=== PATIENT | female | born 1970 | race Hispanic/Latino ===

== ENCOUNTER 2017-02-27 13:55 | Observation (INO) | payer MEDICAID ==
[2017-02-27 14:15] VITALS: RESP 18; TEMP 98.1; O2SAT 100
[2017-02-27 14:25] VITALS: BMI 25.0
[2017-02-27 15:58] VITALS: PULSE 77
[2017-02-27 16:33] LABS: ADD MANUAL DIFF? NO
[2017-02-27 16:38] LABS: BASO # 0.03 K/mm3 (0.0-2.0); BASO % 0.4 % (0.0-3.0); EOS # 0.1 (0.0-0.7); EOS % 1.7 % (1.5-5.0); GRAN # 4.75 (1.4-6.5); HEMATOCRIT 40.5 % (36.0-48.0); LYMPH # 2.8 (1.2-3.4); LYMPH % 34.5 % (22.0-35.0); MEAN CORPUSCULAR HGB CONC 34.1 g/dl (31.0-37.0); MEAN PLATELET VOLUME 9.5 fl (7.0-11.0); MONO # 0.4 (0.1-0.6); MONO % 5.4 % (1.0-6.0); PLATELET COUNT 266 10^3/uL (120.0-450.0); RED CELL DISTRIBUTION WIDTH 13.7 % (11.5-14.5); WHITE BLOOD COUNT 8.2 10^3/ul (4.5-11.0)
[2017-02-27 16:50] LABS: ALB/GLOB RATIO 1.1 (1.1-1.8); ALKALINE PHOSPHATASE 97 U/L (38-133); ALT/SGPT 40 U/L (7-56); AST/SGOT 36 U/L (15-39); BILIRUBIN,TOTAL 0.8 mg/dL (0.2-1.3); BLOOD UREA NITROGEN 10 mg/dL (7-21); CALCIUM 9.8 mg/dL (8.4-10.5); CARBON DIOXIDE 28 mmol/L (21-33); CHLORIDE 103 mmol/L (98-107); GFR AFRICAN-AMERICAN > 60; GLUCOSE,RANDOM 88 mg/dL (70-110); POTASSIUM 4.1 mmol/L (3.6-5.0); SODIUM 140 mmol/L (132-148); TOTAL PROTEIN 8.5 g/dL (5.8-8.3)
[2017-02-27] MEDS ORDERED: Iohexol 240 (50 ml) ONE (16:59)
--- NOTE | 2017-02-27 17:12 | ED PDOC ---
Arrival/HPI - General Historian: Patient <Nemesio Willamso Galilea - Last Filed: 02/27/17 18:15> <Jacinto Kern - Last Filed: 02/27/17 20:48> - General Chief Complaint: Psychiatric Evaluation Time Seen by Provider: 02/27/17 14:16 - History of Present Illness Narrative History of Present Illness (Text): 02/27/17 16:10 A 46 year old female, whose past medical history includes diverticulitis, ulcerative colitis, hernia repair, and psychiatric history, presents to the the emergency department for medication refill. Patient states she need a refill for Remeron, Klonopin, and Percocet. Patient report she was told to come to the emergency department by a social work therapist. She says she recently broke up with her boyfriend and had to suddenly move to this area. She does not have any doctor in this area yet to give her a refill on the medication. Patient does complaining of diffuse abdominal pain, which is worse because she ran out of her Percocet. Patient notes some nausea but denies any vomiting, fever, change in bowel movement or any other complaints at this time. PMD: Dr. Iza Urbano ([place], [place]) (ImerPanda L) Past Medical History - Provider Review Nursing Documentation Reviewed: Yes - Infectious Disease Hx of Infectious Diseases: None - Cardiac Hx Cardiac Disorders: Yes Hx Hypertension: Yes - Pulmonary Hx Tuberculosis: No - Neurological HX Cerebrovascular Accident: No Hx Seizures: No - HEENT Hx HEENT Disorder: No - Renal Hx Renal Disorder: No - Endocrine/Metabolic Hx Endocrine Disorders: No - Hematological/Oncological Hx Cancer: No - Integumentary Hx Dermatological Disorder: No - Musculoskeletal/Rheumatological Hx Musculoskeletal Disorders: Yes Hx Back Pain: Yes - Gastrointestinal Hx Gastrointestinal Disorders: Yes Hx Colitis: Yes Hx Diverticulitis: Yes Other/Comment: surgies in the past - Genitourinary/Gynecological Hx Sexually Transmitted Diseases: No - Psychiatric Hx Anxiety: Yes Hx Depression: Yes Hx Substance Use: No - Surgical History Other/Comment: pt reports hx of multiple abdominal and back surgeries. - Anesthesia Hx Anesthesia: Yes <KelsieRoberto dubonmehul Calero - Last Filed: 02/27/17 18:15> Family/Social History - Physician Review Nursing Documentation Reviewed: Yes Family/Social History: Unknown Family HX Smoking Status: Never Smoked Hx Alcohol Use: No Hx Substance Use: No <Panda Willams - Last Filed: 02/27/17 18:15> Allergies/Home Meds <Panda Willams - Last Filed: 02/27/17 18:15> <Jacinto Kern - Last Filed: 02/27/17 20:48> Allergies/Adverse Reactions: Allergies No Known Allergies Allergy (Verified 02/27/17 14:24) Home Medications: Home Meds Medication Instructions Recorded Confirmed Atorvastatin [Lipitor] 10 mg PO DAILY 02/27/17 02/27/17 Clonazepam [Klonopin] 0.5 mg PO DAILY 02/27/17 02/27/17 Ergocalciferol (Vitamin D2) 1,000 mg PO DAILY 02/27/17 02/27/17 [Vitamin D] Gabapentin [Neurontin] 400 mg PO TID 02/27/17 02/27/17 Lisinopril [Zestril] 5 mg PO DAILY 02/27/17 02/27/17 Metoprolol Succinate [Toprol XL] 25 mg PO BID 02/27/17 02/27/17 Mirtazapine [Remeron] 15 mg PO HS 02/27/17 02/27/17 Pantoprazole [Protonix EC Tab] 40 mg PO DAILY 02/27/17 02/27/17 Sertraline [Zoloft] 75 mg PO DAILY 02/27/17 02/27/17 Simvastatin [Zocor] 20 mg PO HS 02/27/17 02/27/17 oxyCODONE/Acetaminophen [Percocet 1 tab PO QID 02/27/17 02/27/17 5/325 mg Tab] Review of Systems - Physician Review All systems were reviewed & negative as marked: Yes - Review of Systems Constitutional: absent: Fevers Gastrointestinal: Abdominal Pain, Nausea. absent: Stool Changes, Constipation, Diarrhea, Vomiting <Nemesio Willamso Galilea - Last Filed: 02/27/17 18:15> Physical Exam Vital Signs Reviewed: Yes Temperature: Afebrile Blood Pressure: Hypertensive Pulse: Regular Respiratory Rate: Normal Appearance: Positive for: Well-Appearing, Non-Toxic, Comfortable Pain Distress: None Mental Status: Positive for: Alert and Oriented X 3 - Systems Exam Head: Present: Atraumatic, Normocephalic Pupils: Present: PERRL Extroacular Muscles: Present: EOMI Conjunctiva: Present: Normal Mouth: Present: Moist Mucous Membranes Neck: Present: Normal Range of Motion Respiratory/Chest: Present: Clear to Auscultation, Good Air Exchange. No: Respiratory Distress, Accessory Muscle Use Cardiovascular: Present: Regular Rate and Rhythm, Normal S1, S2. No: Murmurs Abdomen: Present: Tenderness (diffuse tenderness with palpation ), Normal Bowel Sounds, Guarding. No: Distention, Peritoneal Signs, Rebound Back: Present: Normal Inspection Upper Extremity: Present: Normal Inspection. No: Cyanosis, Edema Lower Extremity: Present: Normal Inspection. No: Edema Neurological: Present: GCS=15, CN II-XII Intact, Speech Normal Skin: Present: Warm, Dry, Normal Color. No: Rashes Psychiatric: Present: Alert, Oriented x 3, Normal Insight, Normal Concentration <Panda Willams - Last Filed: 02/27/17 18:15> Medical Decision Making - Lab Interpretations I have reviewed the lab results: Yes <Panda Willams - Last Filed: 02/27/17 18:15> Re-evaluation Time: 20:27 Reassessment Condition: Re-examined, Improved - RAD Interpretation Logging Superintendent: Radiologist <Jacinto Kern - Last Filed: 02/27/17 20:48> ED Course and Treatment: 02/27/17 16:10 Impression: A 46 year old female come in for medication refill and abdominal pain. Differential Diagnosis include but are not limited to: diverticulitis vs. obstruction Plan: -- Abdomen/Pelvis CT -- Labs -- Urinalysis -- Toradol -- Reassess and disposition (Panda Willams) - Lab Interpretations Lab Results: 02/27/17 16:26 02/27/17 16:26 Lab Results 02/27/17 16:52: Urine Opiates Screen Negative, Urine Methadone Screen Negative, Ur Barbiturates Screen Negative, Ur Phencyclidine Scrn Negative, Ur Amphetamines Screen Negative, U Benzodiazepines Scrn Negative, U Oth Cocaine Metabols Negative, U Cannabinoids Screen Positive H 02/27/17 16:52: Urine Color Yellow, Urine Appearance Clear, Urine pH 7.5, Ur Specific [place] 1.020, Urine Protein Negative, Urine Glucose (UA) Negative, Urine Ketones Negative, Urine Blood Negative, Urine Nitrate Negative, Urine Bilirubin Negative, Urine Urobilinogen 0.2, Ur Leukocyte Esterase Negative 02/27/17 16:26: Alcohol, Quantitative < 10 02/27/17 16:26: Salicylates < 1 L, Acetaminophen < 10.0 L 02/27/17 16:26: Sodium 140, Potassium 4.1, Chloride 103, Carbon Dioxide 28, Anion Gap 13, BUN 10, Creatinine 0.6, Est GFR ( Amer) > 60, Est GFR (Non- Af Amer) > 60, Random Glucose 88, Calcium 9.8, Total Bilirubin 0.8, AST 36, ALT 40, Alkaline Phosphatase 97, Total Protein 8.5 H, Albumin 4.5, Globulin 4.0, Albumin/Globulin Ratio 1.1 02/27/17 16:26: WBC 8.2, RBC 4.60, Hgb 13.8, Hct 40.5, MCV 88.0, MCH 30.0, MCHC 34.1, RDW 13.7, Plt Count 266, MPV 9.5, Gran % 58.0, Lymph % (Auto) 34.5, Bond % (Auto) 5.4, Eos % (Auto) 1.7, Baso % (Auto) 0.4, Gran # 4.75, Lymph # 2.8, Bond # 0.4, Eos # 0.1, Baso # 0.03 - RAD Interpretation Narrative RAD Interpretations (Text): CT Abdomen and Pelvis shows: LOWER THORAX: No infiltrate seen in the lung bases. ABDOMEN: LIVER: Fatty infiltration of the liver. Liver appears enlarged. GALLBLADDER AND BILE DUCTS: Mild biliary ductal dilatation, with the common bile duct measuring 9 mm. No cause for this finding is by CT. No CT evidence of acute cholecystitis. PANCREAS: Incidental tiny 5 mm round, low density lesion in the pancreatic body , image 54 of series 2. This is likely a cystic lesion, however, it is too small to characterize this exam. No CT evidence of acute pancreatitis. SPLEEN: No acute abnormality of the spleen identified. ADRENALS: No acute abnormality of the adrenal glands identified. KIDNEYS AND URETERS: Indeterminate 9 mm hyperdense lesion in the right kidney, image 76 of series 601, located in the upper pole. This could represent a hyperdense cyst, but a solid lesion is not definitely excluded. Recommend further evaluation with renal ultrasound or renal protocol CT or MRI, on a nonemergent basis. Low density probable cyst in the right kidney. No acute abnormality of the kidneys identified. STOMACH AND BOWEL: Colonic diverticulosis, with no evidence of acute diverticulitis. Otherwise, no significant abnormality of the bowel is identified. No evidence of bowel obstruction. No acute abnormality of the stomach or duodenum identified. APPENDIX: Normal appendix is not seen, however, there are no significant inflammatory changes visualized in the expected location of the appendix to suggest appendicitis. Recommend clinical correlation. PELVIS: BLADDER: Mild thickening of the bladder wall. REPRODUCTIVE: 2.5 cm right ovarian/adnexal cystic lesion. This has a benign appearance by CT. No followup is warranted based on the imaging findings, unless otherwise clinically indicated. Surgical clips in the left adnexa, likely related to the known history of previous left oophorectomy. ABDOMEN and PELVIS: INTRAPERITONEAL SPACE: No evidence of free intraperitoneal air or fluid. BONES/JOINTS: No acute fractures or other acute bony abnormality noted. SOFT TISSUES: Postsurgical changes involving the anterior abdominal and pelvic wall.No evidence of abdominal wall hernia containing bowel. VASCULATURE: No evidence of abdominal aortic aneurysm. No evidence of periaortic hemorrhage. LYMPH NODES: No evidence of diffuse lymphadenopathy. IMPRESSION: - Mild bladder wall thickening. This is a nonspecific finding, but can be seen with cystitis. Recommend clinical correlation. - Mild biliary ductal dilatation, cause not identified. Recommend correlation with LFTs for laboratory evidence of biliary obstruction. - Otherwise, no evidence of significant acute process. - Incidental tiny 5 mm pancreatic lesion, probably cystic, but too small to characterize. Recommend further evaluation with nonemergent pancreatic protocol abdominal MRI. No CT evidence of acute pancreatitis. - Incidental indeterminate hyperdense renal lesion. See above. - See above for remaining findings. (Jacinto Kern) Radiology Orders: 02/27/17 16:40 ABD PELVIS PO & IV CONTRAST [CT] Stat - Medication Orders Current Medication Orders: Discontinued Medications Iohexol (Omnipaque 240 (50 Ml)) Confirm Administered Dose 50 ml .ROUTE .STK-MED ONE Stop: 02/27/17 17:00 Ketorolac Tromethamine (Toradol) 30 mg IVP STAT STA Stop: 02/27/17 16:15 Last Admin: 02/27/17 17:00 Dose: 30 mg Morphine Sulfate (Morphine) 4 mg IVP STAT STA Stop: 02/27/17 17:16 Last Admin: 02/27/17 17:27 Dose: 4 mg Ondansetron HCl (Zofran Inj) 4 mg IVP STAT STA Stop: 02/27/17 17:33 Last Admin: 02/27/17 17:37 Dose: 4 mg Ondansetron HCl (Zofran Inj) Confirm Administered Dose 4 mg .ROUTE .STK-MED ONE Stop: 02/27/17 17:35 Last Admin: 02/27/17 17:38 Dose: ED OBSERVATION Date of observation admission: 02/27/17 Time of observation admission: 16:10 <Panda Willams - Last Filed: 02/27/17 18:15> Discharge: Yes <Jacinto Kern - Last Filed: 02/27/17 20:48> - Observation admission statement Patient is being placed in observation because:: abdominal pain (Panda Willams) - Goals of Observation Goals of observation are:: pain control and obtain series of abdominal examinations (Panda Willams) - Progress Note Progress Note: 02/27/17 16:10 PES called. 02/27/17 17:30 Patient evaluated by PES worker, who states patient is clear for discharge. Patient given referral and instructions to follow up with psychiatric clinic. (Panda Willams) 02/27/17 19:00 Case endorsed to me by Dr. Willams, pending CT scan. 02/27/17 20:10 Reviewed radiology, CT Abdomen and Pelvis shows: - Mild bladder wall thickening. This is a nonspecific finding, but can be seen with cystitis. Recommend clinical correlation. - Mild biliary ductal dilatation, cause not identified. Recommend correlation with LFTs for laboratory evidence of biliary obstruction. - Otherwise, no evidence of significant acute process. - Incidental tiny 5 mm pancreatic lesion, probably cystic, but too small to characterize. Recommend further evaluation with nonemergent pancreatic protocol abdominal MRI. No CT evidence of acute pancreatitis. - Incidental indeterminate hyperdense renal lesion. See above. - See above for remaining findings. (Jacinto Kern) - Scribe Statement The provider has reviewed the documentation as recorded by the Scribe <Panda Willams - Last Filed: 02/27/17 18:15> <Jacinto Kern - Last Filed: 02/27/17 20:48> - Scribe Statement Miguel Bell Provider Scribe Attestation: All medical record entries made by the Scribe were at my direction and personally dictated by me. I have reviewed the chart and agree that the record accurately reflects my personal performance of the history, physical exam, medical decision making, and the department course for this patient. I have also personally directed, reviewed, and agree with the discharge instructions and disposition. (Panda Willams) Disposition/Present on Arrival - Present on Arrival History of DVT/PE: No History of Uncontrolled Diabetes: No Urinary Catheter: No History of Decub. Ulcer: No History Surgical Site Infection Following: None <Panda Willasm - Last Filed: 02/27/17 18:15> - Present on Arrival Any Indicators Present on Arrival: No - Disposition Have Diagnosis and Disposition been Completed?: Yes Disposition Time: 20:48 <Jacinto Kern - Last Filed: 02/27/17 20:48> - Disposition Diagnosis: Abdominal pain Disposition: HOME/ ROUTINE Patient Problems: Current Active Problems Problem Status Onset Abdominal pain Acute Condition: GOOD
[2017-02-27] MEDS ORDERED: Morphine 4 mg/ml ISec IVP STA (17:15)
[2017-02-27 17:29] LABS: PH,URINE 7.5 (4.7-8.0); URINE BILIRUBIN NEGATIVE (NEGATIVE); URINE BLOOD NEGATIVE (NEGATIVE); URINE GLUCOSE (UA) NEGATIVE (NEGATIVE); URINE KETONE NEGATIVE (NEGATIVE); URINE LEUKOCYTE ESTERASE NEGATIVE Leu/uL (NEGATIVE); URINE PROTEIN NEGATIVE mg/dL (<30 mg/dL); URINE UROBILINOGEN 0.2 E.U./dL (<1 E.U./dL)
[2017-02-27 17:32] VITALS: BP 168/95
[2017-02-27 17:40] LABS: URINE APPEARANCE CLEAR (CLEAR); URINE COLOR YELLOW (YELLOW)
[2017-02-27] MEDS ORDERED: Iohexol 350 MG/100 ML VIAL ONE (18:42)
--- NOTE | 2017-02-27 20:07 | CT ---
EXAM: CT Abdomen and Pelvis With Intravenous Contrast CLINICAL HISTORY: 46 years old, female; Pain; Abdominal pain; Generalized; Prior surgery; Surgery date: 6+ months; Surgery type: Hernia w/mesh, cysts removed, lt ovary and both fallopian tubes removed, ap, colostomy x1 year and reversal, ; patient HX: Colitis, diverticulosis; Additional info: Abd pain TECHNIQUE: Axial computed tomography images of the abdomen and pelvis with intravenous contrast. This CT exam was performed using one or more of the following dose reduction techniques: automated exposure control, adjustment of the mA and/or kV according to patient size, and/or use of iterative reconstruction technique. Coronal and sagittal reformatted images were created and reviewed. CONTRAST: 95 mL of omni 350 administered intravenously. EXAM DATE/TIME: 02/27/2017 4:40 PM COMPARISON: No relevant prior studies available. FINDINGS: LOWER THORAX: No infiltrate seen in the lung bases. ABDOMEN: LIVER: Fatty infiltration of the liver. Liver appears enlarged. GALLBLADDER AND BILE DUCTS: Mild biliary ductal dilatation, with the common bile duct measuring 9 mm. No cause for this finding is by CT. No CT evidence of acute cholecystitis. PANCREAS: Incidental tiny 5 mm round, low density lesion in the pancreatic body, image 54 of series 2. This is likely a cystic lesion, however, it is too small to characterize this exam. No CT evidence of acute pancreatitis. SPLEEN: No acute abnormality of the spleen identified. ADRENALS: No acute abnormality of the adrenal glands identified. KIDNEYS AND URETERS: Indeterminate 9 mm hyperdense lesion in the right kidney, image 76 of series 601, located in the upper pole. This could represent a hyperdense cyst, but a solid lesion is not definitely excluded. Recommend further evaluation with renal ultrasound or renal protocol CT or MRI, on a nonemergent basis. Low density probable cyst in the right kidney. No acute abnormality of the kidneys identified. STOMACH AND BOWEL: Colonic diverticulosis, with no evidence of acute diverticulitis. Otherwise, no significant abnormality of the bowel is identified. No evidence of bowel obstruction. No acute abnormality of the stomach or duodenum identified. APPENDIX: Normal appendix is not seen, however, there are no significant inflammatory changes visualized in the expected location of the appendix to suggest appendicitis. Recommend clinical correlation. PELVIS: BLADDER: Mild thickening of the bladder wall. REPRODUCTIVE: 2.5 cm right ovarian/adnexal cystic lesion. This has a benign appearance by CT. No followup is warranted based on the imaging findings, unless otherwise clinically indicated. Surgical clips in the left adnexa, likely related to the known history of previous left oophorectomy. ABDOMEN and PELVIS: INTRAPERITONEAL SPACE: No evidence of free intraperitoneal air or fluid. BONES/JOINTS: No acute fractures or other acute bony abnormality noted. SOFT TISSUES: Postsurgical changes involving the anterior abdominal and pelvic wall.No evidence of abdominal wall hernia containing bowel. VASCULATURE: No evidence of abdominal aortic aneurysm. No evidence of periaortic hemorrhage. LYMPH NODES: No evidence of diffuse lymphadenopathy. IMPRESSION: - Mild bladder wall thickening. This is a nonspecific finding, but can be seen with cystitis. Recommend clinical correlation. - Mild biliary ductal dilatation, cause not identified. Recommend correlation with LFTs for laboratory evidence of biliary obstruction. - Otherwise, no evidence of significant acute process. - Incidental tiny 5 mm pancreatic lesion, probably cystic, but too small to characterize. Recommend further evaluation with nonemergent pancreatic protocol abdominal MRI. No CT evidence of acute pancreatitis. - Incidental indeterminate hyperdense renal lesion. See above. - See above for remaining findings.
== END 2017-02-27 20:28 | disposition home or self-care (01) ==
LOC: ED 13:55 → EROBSV 18:19
PROVIDERS: ADMIT Emergency Medicine; ATTEND Emergency Medicine
DX: R10.9 Unspecified abdominal pain (principal); I10 Essential (primary) hypertension; K57.92 Diverticulitis of intestine, part unspecified, without perforation or abscess without bleeding; F41.9 Anxiety disorder, unspecified; F32.9 Major depressive disorder, single episode, unspecified
CPT/HCPCS: 74177; 80053; 80320; 80324; 80329; 80345; 80346; 80349; 80353; 80358; 80361; 81003; 83992; 85025; 96374; 96375; 99285; G0378; J1885; J2270; J2405; Q9966; Q9967

== ENCOUNTER 2017-06-13 16:59 | Inpatient (IN) | payer MEDICAID ==
[2017-06-13 16:59] VITALS: BMI 25.0
[2017-06-13] MEDS ORDERED: Sodium Chloride 0.9% 1,000 ML IV STA (17:22)
--- NOTE | 2017-06-13 17:29 | ED PDOC ---
Arrival/HPI - General Chief Complaint: Abdominal Pain Time Seen by Provider: 06/13/17 17:09 Historian: Patient - History of Present Illness Narrative History of Present Illness (Text): 06/13/17 17:26 Lesa Holbrook is a 46 year old female, whose past medical history includes diverticulitis, hypertension, and hyperlipidemia, who presents to the emergency department complaining of abdominal pain for the last few days. Patient states that she went to another ER and obtained a negative CT scan. Patient states that she saw her PMD. Patient also notes that she experiences diarrhea and is unable to pass gas. Patient notes that her abdomen is distended. Patient denies any fevers or any other complaints at this time. Time/Duration: < week Symptom Onset: Gradual Symptom Course: Unchanged Activities at Onset: Rest Context: Home Past Medical History - Provider Review Nursing Documentation Reviewed: Yes - Infectious Disease Hx of Infectious Diseases: None - Cardiac Hx Cardiac Disorders: Yes Hx Hypertension: Yes - Pulmonary Hx Tuberculosis: No - Neurological HX Cerebrovascular Accident: No Hx Seizures: No - HEENT Hx HEENT Disorder: No - Renal Hx Renal Disorder: No - Endocrine/Metabolic Hx Endocrine Disorders: No - Hematological/Oncological Hx Cancer: No - Integumentary Hx Dermatological Disorder: No - Musculoskeletal/Rheumatological Hx Musculoskeletal Disorders: Yes Hx Back Pain: Yes - Gastrointestinal Hx Gastrointestinal Disorders: Yes Hx Colitis: Yes Hx Diverticulitis: Yes Other/Comment: surgies in the past - Genitourinary/Gynecological Hx Sexually Transmitted Diseases: No - Psychiatric Hx Anxiety: Yes Hx Depression: Yes Hx Substance Use: No - Surgical History Other/Comment: pt reports hx of multiple abdominal and back surgeries. - Anesthesia Hx Anesthesia: Yes Family/Social History - Physician Review Nursing Documentation Reviewed: Yes Family/Social History: No Known Family HX Smoking Status: Never Smoked Hx Alcohol Use: No Hx Substance Use: No Allergies/Home Meds Allergies/Adverse Reactions: Allergies No Known Allergies Allergy (Verified 02/27/17 14:24) Home Medications: Home Meds Medication Instructions Recorded Confirmed Atorvastatin [Lipitor] 10 mg PO DAILY 02/27/17 06/13/17 Clonazepam [Klonopin] 0.5 mg PO DAILY 02/27/17 06/13/17 Ergocalciferol (Vitamin D2) 1,000 mg PO DAILY 02/27/17 06/13/17 [Vitamin D] Gabapentin [Neurontin] 400 mg PO TID 02/27/17 06/13/17 Lisinopril [Zestril] 5 mg PO DAILY 02/27/17 06/13/17 Metoprolol Succinate [Toprol XL] 25 mg PO BID 02/27/17 06/13/17 Mirtazapine [Remeron] 15 mg PO HS 02/27/17 06/13/17 Pantoprazole [Protonix EC Tab] 40 mg PO DAILY 02/27/17 06/13/17 Sertraline [Zoloft] 75 mg PO DAILY 02/27/17 06/13/17 Simvastatin [Zocor] 20 mg PO HS 02/27/17 06/13/17 Review of Systems - Physician Review All systems were reviewed & negative as marked: Yes - Review of Systems Constitutional: absent: Fevers, Night Sweats Eyes: absent: Vision Changes ENT: absent: Hearing Changes Respiratory: absent: SOB Cardiovascular: absent: Chest Pain Gastrointestinal: Abdominal Pain Genitourinary Female: absent: Dysuria Musculoskeletal: absent: Arthralgias Skin: absent: Rash Neurological: absent: Headache Endocrine: absent: Diaphoresis Hemo/Lymphatic: absent: Adenopathy Psychiatric: absent: Anxiety Physical Exam Vital Signs Reviewed: Yes Vital Signs Pulse Resp BP Pulse Ox 06/14/17 01:30 72 16 150/91 H 97 06/13/17 23:37 86 16 142/85 95 06/13/17 16:59 105 H 20 190/112 H 99 Temperature: Febrile Blood Pressure: Hypertensive Pulse: Regular Respiratory Rate: Normal Appearance: Positive for: Well-Appearing, Non-Toxic, Comfortable Pain Distress: None Mental Status: Positive for: Alert and Oriented X 3 - Systems Exam Head: Present: Atraumatic, Normocephalic Pupils: Present: PERRL Extroacular Muscles: Present: EOMI Conjunctiva: Present: Normal Mouth: Present: Moist Mucous Membranes Neck: Present: Normal Range of Motion Respiratory/Chest: Present: Clear to Auscultation, Good Air Exchange. No: Respiratory Distress, Accessory Muscle Use Cardiovascular: Present: Regular Rate and Rhythm, Normal S1, S2. No: Murmurs Abdomen: Present: Tenderness (LLQ tenderness), Distention (Abdomen slightly distended) Back: Present: Normal Inspection Upper Extremity: Present: Normal Inspection. No: Cyanosis, Edema Lower Extremity: Present: Normal Inspection. No: Edema Neurological: Present: GCS=15, CN II-XII Intact, Speech Normal Skin: Present: Warm, Dry, Normal Color. No: Rashes Psychiatric: Present: Alert, Oriented x 3, Normal Insight, Normal Concentration Medical Decision Making ED Course and Treatment: 06/13/17 17:30 Impression: 46 year old female complaining of abdominal pain for the last few days. Differential Diagnosis included but are not limited to: Plan: -- Urinalysis -- Labs -- Zofran and IV Fluids -- Reassess and disposition Prior Visits: Notes and results from previous visits were reviewed. Patient last seen in the ED on 02/27/17 for medication refill. Patient was discharged home. Progress Notes: - Lab Interpretations Microbiology Results: Microbiology Results 06/13/17 17:28 Urine,Clean Catch Urine Culture - Final No Growth (<1,000 CFU/ML) Lab Results: 06/13/17 17:56 06/13/17 17:56 Lab Results 06/13/17 17:56: Urine HCG, Qual Negative 06/13/17 17:56: Sodium 143, Potassium 3.7, Chloride 105, Carbon Dioxide 25, Anion Gap 17, BUN 7, Creatinine 0.6, Est GFR ( Amer) > 60, Est GFR (Non- Af Amer) > 60, Random Glucose 85, Calcium 9.9, Total Bilirubin 0.6, AST 24, ALT 37, Alkaline Phosphatase 112, Total Protein 7.5, Albumin 4.4, Globulin 3.1, Albumin/Globulin Ratio 1.4, Lipase 93 06/13/17 17:56: PT 11.3, INR 1.05, APTT 29.6 06/13/17 17:56: WBC 8.3, RBC 4.85, Hgb 14.2, Hct 41.4, MCV 85.4, MCH 29.3, MCHC 34.3, RDW 13.5, Plt Count 270, MPV 9.5, Gran % 62.7, Lymph % (Auto) 30.5, [place] % (Auto) 4.7, Eos % (Auto) 1.6, Baso % (Auto) 0.5, Gran # 5.23, Lymph # 2.5, [place] # 0.4, Eos # 0.1, Baso # 0.04 06/13/17 17:15: Urine Color Yellow, Urine Appearance Clear, Urine pH 6.0, Ur Specific [place] 1.020, Urine Protein Negative, Urine Glucose (UA) Negative, Urine Ketones Negative, Urine Blood Moderate H, Urine Nitrate Negative, Urine Bilirubin Negative, Urine Urobilinogen 0.2, Ur Leukocyte Esterase Trace H, Urine RBC 2 - 5, Urine WBC 1 - 3, Ur Epithelial Cells 10 - 12, Urine Bacteria Few I have reviewed the lab results: Yes - RAD Interpretation Radiology Orders: 06/13/17 18:06 ABD & PELVIS IV CONTRAST ONLY [CT] Stat - Medication Orders Current Medication Orders: Atorvastatin Calcium (Lipitor) 10 mg PO DAILY [facility] Last Admin: 06/15/17 09:03 Dose: 10 mg Cholecalciferol (Vitamin D) 1,000 iu PO DAILY [facility] Last Admin: 06/15/17 09:03 Dose: 1,000 iu Clonazepam (Klonopin) 0.5 mg PO DAILY [facility] PRN Reason: Protocol Last Admin: 06/15/17 09:02 Dose: 0.5 mg Re-Assess: Reassess Psych Meds Document 06/15/17 10:02 TRI (Rec: 06/15/17 10:03 [id number] Reassess Psych Med Effective Gabapentin (Neurontin) 400 mg PO TID [facility] PRN Reason: Protocol Last Admin: 06/15/17 09:02 Dose: 400 mg Re-Assess: Reassess Psych Meds Document 06/15/17 10:02 TRI (Rec: 06/15/17 10:04 [id number] Reassess Psych Med Effective Lisinopril (Zestril) 5 mg PO DAILY [facility] Last Admin: 06/15/17 09:02 Dose: 5 mg Metoprolol Succinate (Toprol Xl) 25 mg PO BID [facility] Last Admin: 06/15/17 09:02 Dose: 25 mg Mirtazapine (Remeron) 15 mg PO HS [facility] Last Admin: 06/14/17 22:05 Dose: 15 mg Ondansetron HCl (Zofran Inj) 4 mg IVP Q6H PRN PRN Reason: Nausea/Vomiting Oxycodone/Acetaminophen (Percocet 5/325 Mg Tab) 1 tab PO Q6H PRN PRN Reason: Pain, moderate (4-7) Stop: 06/18/17 10:49 Last Admin: 06/15/17 11:09 Dose: 1 tab Pantoprazole Sodium (Protonix Inj) 40 mg IVP DAILY [facility] Last Admin: 06/15/17 09:03 Dose: 40 mg Pneumococcal Polyvalent Vaccine (Pneumovax 23 Vaccine) 0.5 ml IM .ONCE ONE Stop: 06/16/17 10:01 Sertraline HCl (Zoloft) 75 mg PO DAILY [facility] Last Admin: 06/15/17 09:03 Dose: 75 mg Discontinued Medications Sodium Chloride (Sodium Chloride 0.9%) 1,000 mls @ 1,000 mls/hr IV .Q1H STA Stop: 06/13/17 18:21 Last Admin: 06/13/17 17:32 Dose: 1,000 mls/hr Piperacillin Sod/Tazobactam Sod (Zosyn 3.375 In Ns 100ml) 100 mls @ 200 mls/hr IVPB STAT STA PRN Reason: Protocol Stop: 06/13/17 20:24 Last Admin: 06/13/17 23:32 Dose: 200 mls/hr Sodium Chloride (Sodium Chloride 0.9%) 1,000 mls @ 250 mls/hr IV .Q4H ONE Stop: 06/14/17 01:54 Sodium Chloride (Sodium Chloride 0.9%) 1,000 mls @ 100 mls/hr IV .Q10H ONE Stop: 06/14/17 07:54 Last Admin: 06/13/17 23:35 Dose: 100 mls/hr Sodium Chloride (Sodium Chloride 0.9%) 1,000 mls @ 125 mls/hr IV .Q8H [facility] Sodium Chloride (Sodium Chloride 0.9%) 1,000 mls @ 100 mls/hr IV .Q10H [facility] Iohexol (Omnipaque 350 100 Ml) Confirm Administered Dose 350 mg .ROUTE .STK-MED ONE Stop: 06/13/17 18:13 Ketorolac Tromethamine (Toradol) 30 mg IVP STAT STA Stop: 06/13/17 21:54 Last Admin: 06/13/17 23:50 Dose: 30 mg Ketorolac Tromethamine (Toradol) 30 mg IVP Q4H PRN PRN Reason: Pain, severe (8-10) Ketorolac Tromethamine (Toradol) 30 mg IVP Q6H PRN PRN Reason: Pain, severe (8-10) Last Admin: 06/15/17 09:03 Dose: 30 mg Re-Assess: JA Pain Assessment Document 06/15/17 10:03 TRI (Rec: 06/15/17 10:04 TRI [id number]) Pain Reassessment Is this a pain reassessment? Yes Sleep Is patient sleeping during reassessment? No Presence of Pain Presence of Pain No Methylprednisolone (Solu-Medrol) 125 mg IVP STAT STA Stop: 06/13/17 19:58 Last Admin: 06/13/17 21:36 Dose: 125 mg Morphine Sulfate (Morphine) 4 mg IVP STAT STA Stop: 06/13/17 19:58 Last Admin: 06/13/17 21:37 Dose: 4 mg Morphine Sulfate (Morphine) 2 mg IVP STAT ONE Stop: 06/14/17 03:44 Last Admin: 06/14/17 04:10 Dose: 2 mg Re-Assess: [facility] Pain Assessment Document 06/14/17 05:10 [email or web address] (Rec: 06/14/17 08:01 [email or web address] [id number] ) Pain Reassessment Is this a pain reassessment? Yes Sleep Is patient sleeping during reassessment? No Presence of Pain Presence of Pain No Morphine Sulfate (Morphine) 1 mg IVP ONCE STA Stop: 06/14/17 14:38 Last Admin: 06/14/17 15:07 Dose: 1 mg Morphine Sulfate (Morphine Extended Release Tab) 15 mg PO STAT STA Stop: 06/15/17 00:51 Nifedipine (Procardia Xl) 30 mg PO STAT STA Stop: 06/14/17 23:19 Last Admin: 06/14/17 23:51 Dose: 30 mg Ondansetron HCl (Zofran Inj) 4 mg IVP STAT STA Stop: 06/13/17 17:23 Last Admin: 06/13/17 17:31 Dose: 4 mg Potassium Chloride (Potassium Chloride Oral Soln) 40 meq PO ONCE ONE Stop: 06/15/17 09:15 Last Admin: 06/15/17 09:50 Dose: 40 meq Trimethoprim/Sulfamethoxazole (Bactrim Ds Tab) 1 tab PO BID [facility] PRN Reason: Protocol Stop: 06/19/17 10:01 Last Admin: 06/14/17 23:51 Dose: 1 tab - Scribe Statement The provider has reviewed the documentation as recorded by the Mat Proctor Provider Scribe Attestation: All medical record entries made by the Scribe were at my direction and personally dictated by me. I have reviewed the chart and agree that the record accurately reflects my personal performance of the history, physical exam, medical decision making, and the department course for this patient. I have also personally directed, reviewed, and agree with the discharge instructions and disposition. Disposition/Present on Arrival - Present on Arrival Any Indicators Present on Arrival: No History of DVT/PE: No History of Uncontrolled Diabetes: No Urinary Catheter: No History of Decub. Ulcer: No History Surgical Site Infection Following: None - Disposition Have Diagnosis and Disposition been Completed?: Yes Diagnosis: Ulcerative colitis Disposition: HOSPITALIZED Disposition Time: 08:00 Condition: STABLE
[2017-06-13 17:45] LABS: URINE BILIRUBIN NEGATIVE (NEGATIVE); URINE BLOOD MODERATE (NEGATIVE); URINE GLUCOSE (UA) NEGATIVE (NEGATIVE); URINE KETONE NEGATIVE (NEGATIVE); URINE LEUKOCYTE ESTERASE TRACE Leu/uL (NEGATIVE); URINE PROTEIN NEGATIVE mg/dL (<30 mg/dL); URINE UROBILINOGEN 0.2 E.U./dL (<1 E.U./dL)
[2017-06-13 17:58] LABS: URINE APPEARANCE CLEAR (CLEAR); URINE COLOR YELLOW (YELLOW)
[2017-06-13 18:03] LABS: BASO # 0.04 K/mm3 (0.0-2.0); BASO % 0.5 % (0.0-3.0); EOS # 0.1 (0.0-0.7); EOS % 1.6 % (1.5-5.0); GRAN # 5.23 (1.4-6.5); GRAN % 62.7 % (50.0-68.0); HEMATOCRIT 41.4 % (36.0-48.0); LYMPH # 2.5 (1.2-3.4); LYMPH % 30.5 % (22.0-35.0); MEAN CELL VOLUME 85.4 fl (80.0-105.0); MEAN CORPUSCULAR HEMOGLOBIN 29.3 pg (25.0-35.0); MEAN CORPUSCULAR HGB CONC 34.3 g/dl (31.0-37.0); MEAN PLATELET VOLUME 9.5 fl (7.0-11.0); MONO # 0.4 (0.1-0.6); MONO % 4.7 % (1.0-6.0); RED CELL DISTRIBUTION WIDTH 13.5 % (11.5-14.5); WHITE BLOOD COUNT 8.3 10^3/ul (4.5-11.0)
[2017-06-13 18:03] LABS: URINE BACTERIA FEW (NEG)
[2017-06-13] MEDS ORDERED: Iohexol 350 MG/100 ML VIAL ONE (18:12)
[2017-06-13 18:14] LABS: INR 1.05 (0.93-1.08); PARTIAL THROMBOPLASTIN TIME 29.6 Seconds (23.7-30.8)
[2017-06-13 18:26] LABS: ALB/GLOB RATIO 1.4 (1.1-1.8); ALKALINE PHOSPHATASE 112 U/L (38-133); ALT/SGPT 37 U/L (7-56); AST/SGOT 24 U/L (15-39); BILIRUBIN,TOTAL 0.6 mg/dL (0.2-1.3); BLOOD UREA NITROGEN 7 mg/dL (7-21); CALCIUM 9.9 mg/dL (8.4-10.5); CARBON DIOXIDE 25 mmol/L (21-33); CHLORIDE 105 mmol/L (95-110); GFR AFRICAN-AMERICAN > 60; GLUCOSE,RANDOM 85 mg/dL (70-110); LIPASE 93 U/L (23-300); POTASSIUM 3.7 mmol/L (3.6-5.0); SODIUM 143 mmol/L (132-148); TOTAL PROTEIN 7.5 g/dL (5.8-8.3)
--- NOTE | 2017-06-13 19:53 | CT ---
EXAM: CT Abdomen and Pelvis With Intravenous Contrast EXAM DATE/TIME: 06/13/2017 6:06 PM CLINICAL HISTORY: 46 years old, female; Pain; Abdominal pain and distention; Prior surgery; Surgery type: Appendectomy salpingectomy hernia repair; Additional info: Colitis and diverticulitis, TECHNIQUE: Axial computed tomography images of the abdomen and pelvis with intravenous contrast. All CT scans at this facility use one or more dose reduction techniques, viz.: automated exposure control; ma/kV adjustment per patient size (including targeted exams where dose is matched to indication; i.e. head); or iterative reconstruction technique. Coronal and sagittal reformatted images were created and reviewed. CONTRAST: 96 mL of omni 350 administered intravenously. COMPARISON: CT - ABD PELVIS PO IV CONTRAST 02/27/2017 6:48:37 PM FINDINGS: Lower thorax: Heart size is normal. There is a small hiatal hernia. There is minimal atelectasis and scarring at the lung bases. ABDOMEN: Liver: There is fatty infiltration of the liver. Liver is mildly enlarged. Gallbladder and bile ducts: unremarkable Pancreas: unremarkable Spleen: unremarkable Adrenals: unremarkable Kidneys and ureters: There are low-attenuation right renal lesions too small to characterize, most likely cysts.Kidneys and ureters are otherwise unremarkable. Stomach and bowel: The stomach is almost completely empty. Rotation is normal. There is a duodenal diverticulum. There is duodenal and jejunal wall and fold prominence.There is mid-distal small bowel wall thickening. There is mild terminal ileal wall thickening. There is no small bowel obstruction. There is descending colon sigmoid and rectal wall thickening. There is scattered diverticulosis. Appendix: Surgically absent PELVIS: Bladder: unremarkable Reproductive: Uterus is unremarkable. There are no adnexal masses. There are multiple clips in the left adnexa. ABDOMEN and PELVIS: Intraperitoneal space: There is no free air or free fluid. Bones/joints: There are no acute osseous abnormalities Soft tissues: There are postsurgical changes in the abdominal wall. Vasculature: There are vascular calcifications. Lymph nodes: There is no pathologic adenopathy. Other findings: There are multiple surgical clips left lower quadrant and pelvis. IMPRESSION: Enterocolitis; enlarged fatty liver; appendectomy and left salpingectomy Additional findings as described above.
[2017-06-13] MEDS ORDERED: Piperacillin/Tazobact 3.375 gm 100 ML IVPB STA (19:55)
[2017-06-13] MEDS ORDERED: Morphine 4 mg/ml ISec IVP STA (19:57)
[2017-06-13] MEDS ORDERED: Sodium Chloride 0.9% 1,000 ML IV ONE ×2 (21:55→22:17)
--- NOTE | 2017-06-14 01:23 | CP.PCM.HP ---
<Scott Sorenson - Last Filed: 06/14/17 02:59> History of Present Illness - History of Present Illness History of Present Illness: CC: Abdominal pain HPI: Patient is a 46 year old female with past medical history significant for ulcerative colitis, diverticulosis, asthma and psychiatric history who presents to [facility] for abdominal pain x 4 days. Patient reports having left sided abdominal/flank pain described as dull/sharp without radiation. Denies any inciting factors such as illness, trauma or change in medication. Patient reports diarrhea, vomiting, nausea, subjective fevers, chills and poor oral intake. Patient also describes mild to moderate distension of her abdomen. She denies any hematemesis, hematochezia, dysuria, inability to pass gas. Patient reports she has had previous episodes such as this with most recent being 6 months ago. Patient reports colonoscopy done 3 months ago which was reported as negative. Patient sees Dr. Guillaume in [place] for management of her UC. Patient was evaluated at [facility] a few days ago for similar symptoms. Patient reports CT of abdomen was negative and she was discharged with instructions to follow up outpatient. PMH: As above PSH: Bowel resection, Appendectomy, hernia repair x2, Ovarian cyst removal FMH: Non-contributory SocHx: - Tobacco: 1 PPD for 30 years - Etoh: Seldom use - ID: [id number], denies IVDA ALL: NKDA Meds: See DEC PMD: [facility] GI: Dr. Leonel Guillaume Present on Admission - Present on Admission Any Indicators Present on Admission: No History of DVT/PE: No History of Uncontrolled Diabetes: No Urinary Catheter: No Decubitus Ulcer Present: No Review of Systems - Constitutional Constitutional: Chills, Fever. absent: Weight Loss, Weakness - EENT Eyes: absent: Blind Spots, Blurred Vision Ears: absent: Decreased Hearing, Tinnitus Nose/Mouth/Throat: absent: Nasal Congestion, Nasal Discharge - Cardiovascular Cardiovascular: absent: Chest Pain, Dyspnea, Leg Edema, Palpitations - Respiratory Respiratory: absent: Cough, Dyspnea, Hemoptysis - Gastrointestinal Gastrointestinal: Abdominal Pain, Bloating, Diarrhea, Loose Stools, Nausea, Vomiting - Genitourinary Genitourinary: absent: Difficulty Urinating, Dysuria, Urinary Incontinence - Reproductive: Female Reproductive:Female: Menopausal - Musculoskeletal Musculoskeletal: absent: Arthralgias, Back Pain, Numbness - Integumentary Integumentary: absent: Erythema, Rash, Swelling - Neurological Neurological: absent: Abnormal Movements, Dizziness, Focal Weakness, Tremor, Weakness - Psychiatric Psychiatric: absent: Depression, Suicidal Ideation Past Patient History - Infectious Disease Hx of Infectious Diseases: None - Past Medical History & Family History Past Medical History?: Yes - Past Social History Smoking Status: Heavy Smoker > 10 Cigarettes Daily Alcohol: Occasional Drugs: Cannabis - CARDIAC Hx Cardiac Disorders: Yes Hx Hypertension: Yes - PULMONARY Hx Tuberculosis: No - NEUROLOGICAL HX Cerebrovascular Accident: No Hx Seizures: No - HEENT Hx HEENT Problems: No - RENAL Hx Chronic Kidney Disease: No - ENDOCRINE/METABOLIC Hx Endocrine Disorders: No - HEMATOLOGICAL/ONCOLOGICAL Hx Cancer: No - INTEGUMENTARY Hx Dermatological Problems: No - MUSCULOSKELETAL/RHEUMATOLOGICAL Hx Musculoskeletal Disorders: Yes Hx Back Pain: Yes - GASTROINTESTINAL Hx Gastrointestinal Disorders: Yes Hx Colitis: Yes Hx Diverticulitis: Yes Other/Comment: surgies in the past - GENITOURINARY/GYNECOLOGICAL Hx Sexually Transmitted Disorders: No - PSYCHIATRIC Hx Anxiety: Yes Hx Depression: Yes Hx Substance Use: No - SURGICAL HISTORY Other/Comment: pt reports hx of multiple abdominal and back surgeries. - ANESTHESIA Hx Anesthesia: Yes Meds Allergies/Adverse Reactions: Allergies Allergy/AdvReac Type Severity Reaction Status Date / Time No Known Allergies Allergy Verified 02/27/17 14:24 Physical Exam - Constitutional Appears: In Acute Distress - Head Exam Head Exam: ATRAUMATIC, NORMAL INSPECTION, NORMOCEPHALIC - Eye Exam Eye Exam: EOMI, PERRL - ENT Exam ENT Exam: Mucous Membranes Dry - Neck Exam Neck exam: Positive for: Full Rom, Normal Inspection - Respiratory Exam Respiratory Exam: Clear to Auscultation Bilateral, NORMAL BREATHING PATTERN. absent: Rales, Wheezes - Cardiovascular Exam Cardiovascular Exam: REGULAR RHYTHM, +S1, +S2 - GI/Abdominal Exam GI & Abdominal Exam: Distended, Normal Bowel Sounds, Soft, Tenderness (left sided abdomen/flank). absent: Guarding, Organomegaly, Rigid - Rectal Exam Rectal Exam: NORMAL INSPECTION - Extremities Exam Extremities exam: Positive for: full ROM, normal inspection. Negative for: tenderness - Back Exam Back exam: paraspinal tenderness (left sided lumbar) - Neurological Exam Neurological exam: Alert, CN II-XII Intact, Normal Gait, Oriented x3, Reflexes Normal - Psychiatric Exam Psychiatric exam: Normal Affect, Normal Mood - Skin Skin Exam: Dry, Intact, Normal Color, Warm Results - Vital Signs Recent Vital Signs: Last Vital Signs Temp Pulse 86 06/13/17 23:37 Resp 16 06/13/17 23:37 BP 142/85 06/13/17 23:37 Pulse Ox 95 06/13/17 23:37 - Labs Result Diagrams: 06/13/17 17:56 06/13/17 17:56 Assessment & Plan (1) Abdominal pain Status: Acute - Assessment and Plan (Free Text) Assessment: Patient is a 46 year old female with past medical history significant for ulcerative colitis, diverticulitis, asthma and psychiatric history who presents with abdominal pain x [address] scan on admission showed enterocoltis and enlarged fatty liver. Patient is being admitted for abdominal pain in the setting of possible ulcerative colitis flare. Plan: 1. Abdominal Pain - Ulcerative colitis vs. Enteritis vs. Colitis - CT abdomen and pelvis showing enterocolitis, enlarged fatty liver, duodenal diverticuli, intermittent small bowel wall thickening, desceding colon sigmoid and rectal wall thickening with scattered diverticulosis - Hx of Ulcerative colitis, not currently on medication for UC - Loose stools reported, negative blood - Flagyl, IVF, Tylenol prn pain - GI consult, appreciate rec - CBC, CMP, Mg, UA, ionized calcium, ESR, CRP - Stool leukocytes, ova and parasite, FOBT - Clear liquid diet as tolerated 2. Hx of HTN - stable, continue home PO meds 3. Hx of Depression - Continue home meds GI/DVT ppx - IV protonix - SCDs Case discussed and reviewed with Dr. Roberson - Date & Time Date: 06/14/17 Time: 01:23 <Manav Roberson - Last Filed: 06/14/17 04:28> Results - Vital Signs Recent Vital Signs: Last Vital Signs Temp Pulse 72 06/14/17 01:30 Resp 20 06/14/17 01:43 BP 150/91 H 06/14/17 01:30 Pulse Ox 97 06/14/17 01:30 - Labs Result Diagrams: 06/13/17 17:56 06/13/17 17:56 Attending/Attestation - Attestation I have personally seen and examined this patient.: Yes I have fully participated in the care of the patient.: Yes I have reviewed all pertinent clinical information: Yes Notes (Text): 06/14/17 04:19 Patient was seen with certified ophthalmic medical technician when she was in bed # 6 in the ER. Agree with history, physical examination, assessment and plan.
[2017-06-14] MEDS ORDERED: Morphine 2 mg/ml ISec IVP ONE (03:43)
[2017-06-14 08:04] LABS: GRAN # 6.61 (1.4-6.5); GRAN % 89.3 % (50.0-68.0); HEMATOCRIT 42.7 % (36.0-48.0); LYMPH # 0.8 (1.2-3.4); LYMPH % 10.3 % (22.0-35.0); MEAN CELL VOLUME 85.6 fl (80.0-105.0); MEAN CORPUSCULAR HEMOGLOBIN 29.7 pg (25.0-35.0); MEAN CORPUSCULAR HGB CONC 34.7 g/dl (31.0-37.0); MEAN PLATELET VOLUME 9.2 fl (7.0-11.0); MONO % 0.4 % (1.0-6.0); RED CELL DISTRIBUTION WIDTH 13.5 % (11.5-14.5); WHITE BLOOD COUNT 7.4 10^3/ul (4.5-11.0)
[2017-06-14 08:12] LABS: ALB/GLOB RATIO 1.3 (1.1-1.8); ALKALINE PHOSPHATASE 97 U/L (38-133); ALT/SGPT 39 U/L (7-56); AST/SGOT 30 U/L (15-39); BILIRUBIN,TOTAL 0.5 mg/dL (0.2-1.3); BLOOD UREA NITROGEN 8 mg/dL (7-21); CALCIUM 9.4 mg/dL (8.4-10.5); CARBON DIOXIDE 26 mmol/L (21-33); GFR AFRICAN-AMERICAN > 60; GLUCOSE,RANDOM 151 mg/dL (70-110); MAGNESIUM 1.8 mg/dL (1.7-2.2); SODIUM 143 mmol/L (132-148); TOTAL PROTEIN 7.5 g/dL (5.8-8.3)
[2017-06-14 08:17] LABS: CHLORIDE 104 mmol/L (98-107)
[2017-06-14] MEDS: Metoprolol Succinate 25 mg XL Tab PO SCH ×2 (09:40→17:21)
--- NOTE | 2017-06-14 11:11 | CP.PCM.CON ---
<Hilda Cano - Last Filed: 06/14/17 10:55> History of Present Illness - History of Present Illness History of Present Illness: Gastroenterology Fellow/PGY5 Consult Note 46 year old female with history of Hypertension, Hyperlipidemia, Diverticulitis s/p left hemicolectomy/colostomy with reversal (10-12 years ago), and Ulcerative colitis (diagnosed 4 years ago) presenting with abdominal pain. Patient notes onset of left sided abdominal pain since Saturday morning at 3AM with associated daily innumerable episodes of bilious vomitus and watery diarrhea after any oral intake. She notes going to outside facility ER two days ago for similar symptoms with conservative treatment. She admits to similar episodes at least once a year leading to hospitalization. Admits to recent travel to [place] for two weeks. No further episodes of vomiting or diarrhea since inpatient. Denies sick contacts, recent antibiotics, unusual foods, change in lifestyle, fever, chills, sweats, hematemesis, hematochezia, melena, eye redness/pain, back pain, joint pain, kidney stones, aphthous ulcers, skin ulcers, or unintentional weight loss. Notes yearly EGD/colonoscopy since Ulcerative colitis diagnosis with endorsed inactive disease. Patient follows with a new promotion writer as of three months ago, Dr. Clark, with colonoscopy performed 2-3 months ago endorsed to be normal. Family- aunt- IBD, colectomy, colostomy, throat cancer; father- colon cancer diagnosed at 60 years of age Social- 30 pack year history, rare social ETOH use, cannibus weekly x 20 years, endorsed quit 3 weeks ago Surgery- , 3 ovarian cyst removals, left salpingectomy,double umbilical hernia, left hemicolectomy/colostomy with reversal 10-12 years ago, Review of Systems - Review of Systems Review of Systems: 12-point review of systems negative except for as above Past Patient History - Infectious Disease Hx of Infectious Diseases: None - Past Medical History & Family History Past Medical History?: Yes - Past Social History Smoking Status: Heavy Smoker > 10 Cigarettes Daily Alcohol: Occasional Drugs: Cannabis - CARDIAC Hx Cardiac Disorders: Yes Hx Hypertension: Yes - PULMONARY Hx Tuberculosis: No - NEUROLOGICAL HX Cerebrovascular Accident: No Hx Seizures: No - HEENT Hx HEENT Problems: No - RENAL Hx Chronic Kidney Disease: No - ENDOCRINE/METABOLIC Hx Endocrine Disorders: No - HEMATOLOGICAL/ONCOLOGICAL Hx Cancer: No - INTEGUMENTARY Hx Dermatological Problems: No - MUSCULOSKELETAL/RHEUMATOLOGICAL Hx Musculoskeletal Disorders: Yes Hx Back Pain: Yes - GASTROINTESTINAL Hx Gastrointestinal Disorders: Yes Hx Colitis: Yes Hx Diverticulitis: Yes Other/Comment: surgies in the past - GENITOURINARY/GYNECOLOGICAL Hx Sexually Transmitted Disorders: No - PSYCHIATRIC Hx Anxiety: Yes Hx Depression: Yes Hx Substance Use: No - SURGICAL HISTORY Other/Comment: pt reports hx of multiple abdominal and back surgeries. - ANESTHESIA Hx Anesthesia: Yes Meds Allergies/Adverse Reactions: Allergies Allergy/AdvReac Type Severity Reaction Status Date / Time No Known Allergies Allergy Verified 02/27/17 14:24 - Medications Medications: Current Medications Atorvastatin Calcium (Lipitor) 10 mg PO DAILY [facility] Last Admin: 06/14/17 09:40 Dose: 10 mg Cholecalciferol (Vitamin D) 1,000 iu PO DAILY [facility] Last Admin: 06/14/17 09:41 Dose: 1,000 iu Clonazepam (Klonopin) 0.5 mg PO DAILY [facility] PRN Reason: Protocol Last Admin: 06/14/17 09:40 Dose: 0.5 mg Gabapentin (Neurontin) 400 mg PO TID [facility] PRN Reason: Protocol Last Admin: 06/14/17 09:40 Dose: 400 mg Ketorolac Tromethamine (Toradol) 30 mg IVP Q4H PRN PRN Reason: Pain, severe (8-10) Lisinopril (Zestril) 5 mg PO DAILY [facility] Last Admin: 06/14/17 09:41 Dose: 5 mg Metoprolol Succinate (Toprol Xl) 25 mg PO BID [facility] Last Admin: 06/14/17 09:40 Dose: 25 mg Mirtazapine (Remeron) 15 mg PO HS [facility] Ondansetron HCl (Zofran Inj) 4 mg IVP Q6H PRN PRN Reason: Nausea/Vomiting Pantoprazole Sodium (Protonix Inj) 40 mg IVP DAILY [facility] Last Admin: 06/14/17 09:40 Dose: 40 mg Pneumococcal Polyvalent Vaccine (Pneumovax 23 Vaccine) 0.5 ml IM .ONCE ONE Stop: 06/16/17 10:01 Sertraline HCl (Zoloft) 75 mg PO DAILY [facility] Last Admin: 06/14/17 09:41 Dose: 75 mg Physical Exam - Constitutional Appears: Non-toxic, No Acute Distress - Head Exam Head Exam: ATRAUMATIC, NORMOCEPHALIC - Eye Exam Eye Exam: EOMI, PERRL Pupil Exam: PERRL. absent: Miosis, Mydriatic - ENT Exam ENT Exam: Mucous Membranes Moist, Normal Oropharynx - Neck Exam Neck exam: Positive for: Full Rom, Normal Inspection - Respiratory Exam Respiratory Exam: Clear to Auscultation Bilateral. absent: Rales, Rhonchi, Wheezes - Cardiovascular Exam Cardiovascular Exam: RRR, +S1, +S2. absent: Gallop, Rubs - GI/Abdominal Exam GI & Abdominal Exam: Distended, Normal Bowel Sounds, Organomegaly, Soft, Tenderness. absent: Firm, Guarding, Hernia, Rebound, Rigid Additional comments: Left carmen-abdomen TTP, midline vertical surgical scar, no erythema/induration, distended, hepatomegaly no fluid wave - Extremities Exam Extremities exam: Positive for: normal inspection. Negative for: pedal edema - Neurological Exam Neurological exam: Alert - Psychiatric Exam Psychiatric exam: Normal Affect, Normal Mood - Skin Skin Exam: Dry, Intact, Normal Color, Warm Results - Vital Signs Recent Vital Signs: Last Vital Signs Temp Pulse 80 06/14/17 09:41 Resp 20 06/14/17 01:43 BP 171/98 H 06/14/17 09:41 Pulse Ox 97 06/14/17 01:30 - Labs Result Diagrams: 06/14/17 07:30 06/14/17 07:30 Labs: Laboratory Results - last 24 hr 06/14/17 06/14/17 07:30 07:30 WBC 7.4 RBC 4.99 Hgb 14.8 Hct 42.7 MCV 85.6 MCH 29.7 MCHC 34.7 RDW 13.5 Plt Count 263 MPV 9.2 Gran % 89.3 H Lymph % (Auto) 10.3 L [place] % (Auto) 0.4 L Eos % (Auto) 0.0 L Baso % (Auto) 0.0 Gran # 6.61 H Lymph # 0.8 L [place] # 0.0 L Eos # 0.0 Baso # 0.00 ESR 22 H Sodium 143 Potassium 4.0 Chloride 104 Carbon Dioxide 26 Anion Gap 17 BUN 8 Creatinine 0.6 Est GFR ( Amer) > 60 Est GFR (Non-Af Amer) > 60 Random Glucose 151 H Calcium 9.4 Magnesium 1.8 Total Bilirubin 0.5 AST 30 ALT 39 Alkaline Phosphatase 97 Total Protein 7.5 Albumin 4.3 Globulin 3.2 Albumin/Globulin Ratio 1.3 Assessment & Plan - Assessment and Plan (Free Text) Assessment: 46 year old female with history of Hypertension, Hyperlipidemia, Diverticulitis s/p left hemicolectomy/colostomy with reversal (10-12 years ago), and Ulcerative colitis (diagnosed 4 years ago) presenting with abdominal pain. Active treatment of enterocolitis on CT IV contrast. History of yearly EGD/ colonoscopy since Ulcerative colitis diagnosis with endorsed inactive disease. Last colonoscopy performed 2-3 months ago endorsed to be normal. Plan: >DDx: infectious, inflammatory, ischemic, stercoral >sudden onset of symptoms with normal labwork points toward possible viral etiology >will hold off on antibiotics >no extraintestinal manifestations or chronic IBD symptoms to diagnosis acute flare up >no indication for antibiotics in setting of UC >no indication for steroids >avoid NSAIDs >ordered fecal calprotectin >CT shows fecal retention >monitor for recurrent diarrhea and send stool sample >consider bowel regimen outpatient for constipation >supportive care: IVFs, pain control, anti-emetics >clear liquid diet, advance as tolerated >obtain records of prior diverticulitis s/p colostomy, UC management, and colonoscopy report >will require outpatient follow up with established promotion writer, Dr. Clark, located in [place] <Martell Shields - Last Filed: 06/14/17 13:05> Meds - Medications Medications: Current Medications Atorvastatin Calcium (Lipitor) 10 mg PO DAILY [facility] Last Admin: 06/14/17 09:40 Dose: 10 mg Cholecalciferol (Vitamin D) 1,000 iu PO DAILY [facility] Last Admin: 06/14/17 09:41 Dose: 1,000 iu Clonazepam (Klonopin) 0.5 mg PO DAILY [facility] PRN Reason: Protocol Last Admin: 06/14/17 09:40 Dose: 0.5 mg Gabapentin (Neurontin) 400 mg PO TID [facility] PRN Reason: Protocol Last Admin: 06/14/17 09:40 Dose: 400 mg Ketorolac Tromethamine (Toradol) 30 mg IVP Q4H PRN PRN Reason: Pain, severe (8-10) Lisinopril (Zestril) 5 mg PO DAILY [facility] Last Admin: 06/14/17 09:41 Dose: 5 mg Metoprolol Succinate (Toprol Xl) 25 mg PO BID [facility] Last Admin: 06/14/17 09:40 Dose: 25 mg Mirtazapine (Remeron) 15 mg PO HS [facility] Ondansetron HCl (Zofran Inj) 4 mg IVP Q6H PRN PRN Reason: Nausea/Vomiting Pantoprazole Sodium (Protonix Inj) 40 mg IVP DAILY [facility] Last Admin: 06/14/17 09:40 Dose: 40 mg Pneumococcal Polyvalent Vaccine (Pneumovax 23 Vaccine) 0.5 ml IM .ONCE ONE Stop: 06/16/17 10:01 Sertraline HCl (Zoloft) 75 mg PO DAILY [facility] Last Admin: 06/14/17 09:41 Dose: 75 mg Results - Vital Signs Recent Vital Signs: Last Vital Signs Temp Pulse 80 06/14/17 09:41 Resp 20 06/14/17 01:43 BP 171/98 H 06/14/17 09:41 Pulse Ox 97 06/14/17 01:30 - Labs Result Diagrams: 06/14/17 07:30 06/14/17 07:30 Labs: Laboratory Results - last 24 hr 06/14/17 06/14/17 06/14/17 07:30 07:30 07:30 WBC 7.4 RBC 4.99 Hgb 14.8 Hct 42.7 MCV 85.6 MCH 29.7 MCHC 34.7 RDW 13.5 Plt Count 263 MPV 9.2 Gran % 89.3 H Lymph % (Auto) 10.3 L [place] % (Auto) 0.4 L Eos % (Auto) 0.0 L Baso % (Auto) 0.0 Gran # 6.61 H Lymph # 0.8 L [place] # 0.0 L Eos # 0.0 Baso # 0.00 ESR 22 H Sodium 143 Potassium 4.0 Chloride 104 Carbon Dioxide 26 Anion Gap 17 BUN 8 Creatinine 0.6 Est GFR ( Amer) > 60 Est GFR (Non-Af Amer) > 60 Random Glucose 151 H Calcium 9.4 Magnesium 1.8 Total Bilirubin 0.5 AST 30 ALT 39 Alkaline Phosphatase 97 C-React Prot High Sens 10.35 H Total Protein 7.5 Albumin 4.3 Globulin 3.2 Albumin/Globulin Ratio 1.3 Attending/Attestation - Attestation I have personally seen and examined this patient.: Yes I have fully participated in the care of the patient.: Yes I have reviewed all pertinent clinical information: Yes Notes (Text): 06/14/17 12:49 I have seen and examined patient with GI fellow. Agree with above documentation with the following additions. In brief, this is a 46 year old female with history of diverticulitis s/p partial colon resection, abdominal hernia repair, questionable ulcerative colitis (diagnosed 4 years ago though is not on any maintenance medication) who presents to hospital with complaint of abdominal pain, nausea, vomiting, and diarrhea which began 4 days ago. Prior to this she was in usual state of health. She denies recent sick contacts, travel, antibiotic use, or unusual food consumption. She claims that she has similar episodes about once per year which she attributes to a "flare." She has never been started on any immunomodulator or biologic therapy for her supposed inflammatory bowel disease and has never been placed on maintenance therapy such as mesalamine. She had a recent colonoscopy by per primary GI physician 3 months ago which was normal as per patient. History of diverticulitis s/p partial colon resection History of abdominal hernia repair Questionable history of inflammatory bowel disease Abdominal pain, nausea, vomiting CT imaging reviewed by me showing significant fecal retention, mid/distal small bowel and descending colon/rectal wall thickening sugestive of enterocolitis - Clinical presentation not consistent with IBD disease exacerbation - Clear liquid diet as tolerated - Obtain fecal calprotectin - Obtain stool studies (culture, c-difficile) - IVF hydration, supportive care, pain control - Would consider initiating antibiotic therapy and possibly re-imaging if patient does not show clinical improvement within 24 hours - Obtain copies of recent colonoscopy and biopsy results from primary GI physician - Will continue to monitor patient clinical course
[2017-06-14] MEDS ORDERED: Morphine 2 mg/ml ISec IVP STA (14:37)
[2017-06-14] MEDS ORDERED: Tmp-Smz 800 mg-160 mg DS Tab PO SCH (23:15)
[2017-06-14] MEDS ORDERED: NIFEdipine 30 mg ER Tab PO STA (23:18)
[2017-06-14] MEDS ORDERED: Sodium Chloride 0.9% 1,000 ML IV SCH (23:22)
[2017-06-15] MEDS ORDERED: Sodium Chloride 0.9% 1,000 ML IV SCH (00:44)
[2017-06-15] MEDS ORDERED: Morphine 15 mg SR Tab PO STA (00:50)
--- NOTE | 2017-06-15 06:52 | CP.PCM.PN ---
Addendum entered and electronically signed by Vanita Lyons DO 06/15/17 14:54: Patient started on Fagyl 500mg po q[address] Discuss[address] Stephanie Lyons PGY2 Original Note: <Vanita Lyons - Last Filed: 06/15/17 14:27> Subjective - Date & Time of Evaluation Date of Evaluation: 06/15/17 Time of Evaluation: 08:00 - Subjective Subjective: PGY2 Progress note for Dr. Brown Patient seen and examined at bedside. Patient reports she still has generalized abdominal pain and reports having had 5 episodes of nonbloody nonmelanotic diarrhea overnight. She is tolerating diet and denies any nausea and vomiting. Patient does not want to take anymore toradol as she reports it does not help and instead wants to take Percocet. She denies any acute complaints of fever, chills, headache, dizziness, chest pain, palpitations, SOB, bladder complaints, pain/swelling in her legs bilaterally. She was noted to ambulate around nursing station. Objective - Vital Signs/Intake and Output Vital Signs (last 24 hours): Temp Pulse Resp BP Pulse Ox 97.6 F 88 20 106/63 98 06/14/17 16:20 06/14/17 17:21 06/14/17 16:20 06/15/17 06:40 06/14/17 16:20 Intake and Output: 06/14/17 06/15/17 18:59 06:59 Intake Total 780 Output Total 3 Balance 777 - Medications Medications: Current Medications Atorvastatin Calcium (Lipitor) 10 mg PO DAILY [facility] Last Admin: 06/14/17 09:40 Dose: 10 mg Cholecalciferol (Vitamin D) 1,000 iu PO DAILY [facility] Last Admin: 06/14/17 09:41 Dose: 1,000 iu Clonazepam (Klonopin) 0.5 mg PO DAILY [facility] PRN Reason: Protocol Last Admin: 06/14/17 09:40 Dose: 0.5 mg Gabapentin (Neurontin) 400 mg PO TID [facility] PRN Reason: Protocol Last Admin: 06/14/17 17:20 Dose: 400 mg Sodium Chloride (Sodium Chloride 0.9%) 1,000 mls @ 100 mls/hr IV .Q10H [facility] Ketorolac Tromethamine (Toradol) 30 mg IVP Q6H PRN PRN Reason: Pain, severe (8-10) Last Admin: 06/14/17 22:04 Dose: 30 mg Lisinopril (Zestril) 5 mg PO DAILY [facility] Last Admin: 06/14/17 09:41 Dose: 5 mg Metoprolol Succinate (Toprol Xl) 25 mg PO BID [facility] Last Admin: 06/14/17 17:21 Dose: 25 mg Mirtazapine (Remeron) 15 mg PO HS [facility] Last Admin: 06/14/17 22:05 Dose: 15 mg Ondansetron HCl (Zofran Inj) 4 mg IVP Q6H PRN PRN Reason: Nausea/Vomiting Pantoprazole Sodium (Protonix Inj) 40 mg IVP DAILY [facility] Last Admin: 06/14/17 09:40 Dose: 40 mg Pneumococcal Polyvalent Vaccine (Pneumovax 23 Vaccine) 0.5 ml IM .ONCE ONE Stop: 06/16/17 10:01 Sertraline HCl (Zoloft) 75 mg PO DAILY [facility] Last Admin: 06/14/17 09:41 Dose: 75 mg - Labs Labs: 06/14/17 07:30 06/14/17 07:30 PT 11.3 Seconds (9.9-11.8) 06/13/17 17:56 INR 1.05 (0.93-1.08) 06/13/17 17:56 APTT 29.6 Seconds (23.7-30.8) 06/13/17 17:56 - Constitutional Appears: Non-toxic, No Acute Distress - Head Exam Head Exam: ATRAUMATIC - Eye Exam Eye Exam: EOMI, Normal appearance, Scleral icterus. absent: Conjunctival injection Pupil Exam: NORMAL ACCOMODATION - ENT Exam ENT Exam: Mucous Membranes Moist - Neck Exam Neck Exam: Full ROM - Respiratory Exam Respiratory Exam: Clear to Ausculation Bilateral, NORMAL BREATHING PATTERN. absent: Accessory Muscle Use, Rales, Rhonchi, Wheezes, Respiratory Distress - Cardiovascular Exam Cardiovascular Exam: REGULAR RHYTHM, RRR, +S1, +S2. absent: Murmur - GI/Abdominal Exam GI & Abdominal Exam: Soft, Tenderness (LLQ), Normal Bowel Sounds. absent: Firm , Guarding, Rigid - Extremities Exam Extremities Exam: Normal Inspection. absent: Pedal Edema - Neurological Exam Neurological Exam: Alert, Awake, Oriented x3. absent: Abnormal Gait - Psychiatric Exam Psychiatric exam: Normal Affect, Normal Mood - Skin Skin Exam: Dry, Intact, Normal Color, Warm Assessment and Plan - Assessment and Plan (Free Text) Assessment: 46 year old female PMHx ulcerative colitis, diverticulitis, asthma and psychiatric history who presents with abdominal pain x 4 days Plan: Abdominal Pain - likely enterocolitis - CT abdomen/pelvis: enterocolitis, enlarged fatty liver, duodenal diverticuli, intermittent small bowel wall thickening, desceding colon sigmoid and rectal wall thickening with scattered diverticulosis - As per GI no abx or steroids at this time - avoid NSAIDs - f/u stool studies - f/u fecal caprotectin - C Diff antigen + toxin negative - f/u repeat C Diff - Florastor 1 tab po bid - Percocet 1 tab po q6 prn pain - Zofran 4mg ivp q6 prn nausea - will require outpatient follow up with established tube mounter, Dr. Clark, located in [place] - GI Dr. Shields Hx of HTN - Toprol xl 25mg po bid - Lisinopril 5mg po daily Hx of HLD - Lipitor 10mg po hs Hx of low vitamin D - vitamin D 1000u po daily Hx of Depression - Continue home meds - Zoloft 75mg po daily - Remeron 15mg po hs - Neurontin 400mg po tid - Clonazepam 0.5mg po daily GI ppx: Protonix 40mg ivp daily VTE ppx: SCDs; Heparin 5000u sc q12 Diet: soft Contact precautions Case discussed with Dr. Stephanie Lyons PGY2 <Radha Brown - Last Filed: 06/15/17 15:26> Objective - Vital Signs/Intake and Output Vital Signs (last 24 hours): Temp Pulse Resp BP Pulse Ox 98.2 F 57 L 18 167/91 H 97 06/15/17 08:43 06/15/17 08:43 06/15/17 08:43 06/15/17 08:43 06/15/17 08:43 Intake and Output: 06/15/17 06/15/17 06:59 18:59 Intake Total 780 900 Output Total 3 Balance 777 900 - Medications Medications: Current Medications Atorvastatin Calcium (Lipitor) 10 mg PO DAILY [facility] Last Admin: 06/15/17 09:03 Dose: 10 mg Cholecalciferol (Vitamin D) 1,000 iu PO DAILY [facility] Last Admin: 06/15/17 09:03 Dose: 1,000 iu Clonazepam (Klonopin) 0.5 mg PO DAILY [facility] PRN Reason: Protocol Last Admin: 06/15/17 09:02 Dose: 0.5 mg Gabapentin (Neurontin) 400 mg PO TID [facility] PRN Reason: Protocol Last Admin: 06/15/17 13:42 Dose: 400 mg Heparin Sodium (Porcine) (Heparin) 5,000 units SC Q12 [facility] PRN Reason: Protocol Lactobacillus Acidophilus (Bacid Acidophilus) 1 cap PO BID [facility] Lisinopril (Zestril) 5 mg PO DAILY [facility] Last Admin: 06/15/17 09:02 Dose: 5 mg Metoprolol Succinate (Toprol Xl) 25 mg PO BID [facility] Last Admin: 06/15/17 09:02 Dose: 25 mg Metronidazole (Flagyl) 500 mg PO Q8 [facility] PRN Reason: Protocol Mirtazapine (Remeron) 15 mg PO HS [facility] Last Admin: 06/14/17 22:05 Dose: 15 mg Ondansetron HCl (Zofran Inj) 4 mg IVP Q6H PRN PRN Reason: Nausea/Vomiting Oxycodone/Acetaminophen (Percocet 5/325 Mg Tab) 1 tab PO Q6H PRN PRN Reason: Pain, moderate (4-7) Stop: 06/18/17 10:49 Last Admin: 06/15/17 11:09 Dose: 1 tab Pantoprazole Sodium (Protonix Inj) 40 mg IVP DAILY [facility] Last Admin: 06/15/17 09:03 Dose: 40 mg Pneumococcal Polyvalent Vaccine (Pneumovax 23 Vaccine) 0.5 ml IM .ONCE ONE Stop: 06/16/17 10:01 Sertraline HCl (Zoloft) 75 mg PO DAILY [facility] Last Admin: 06/15/17 09:03 Dose: 75 mg - Labs Labs: 06/15/17 08:00 06/15/17 08:00 PT 11.3 Seconds (9.9-11.8) 06/13/17 17:56 INR 1.05 (0.93-1.08) 06/13/17 17:56 APTT 29.6 Seconds (23.7-30.8) 06/13/17 17:56 Attending/Attestation - Attestation I have personally seen and examined this patient.: Yes I have fully participated in the care of the patient.: Yes I have reviewed all pertinent clinical information, including history, physical exam and plan: Yes Notes (Text): 06/15/17 15:19 46 year old female with past medical history of hypertension, dyslipidemia, diverticulitis s/p surgery, ?ulcerative colitis and asthma who presented with complaint of abdominal pain. CT abd/pelvis reviewed as above showing enterocolitis. She is on analgesics. She is still reporting loose stools and C diff antigen is positive. Will start on flagyl. Diet was advanced today. GI is following. She will need close outpatient GI follow up upon discharge. Radha Brown MD Hospitalist.
--- NOTE | 2017-06-15 07:41 | CP.PCM.PN ---
<Sawyer Bell - Last Filed: 06/15/17 07:46> Subjective - Date & Time of Evaluation Date of Evaluation: 06/15/17 Time of Evaluation: 07:20 - Subjective Subjective: PGY4 GI Follow-up Pt seen and examined bedside Minimal abd pain in LLQ Denies nay fever, chills, and diaphoresis States she has loose BM Denies any blood or mucus in stool tolerating clear liquids No other complaints Objective - Vital Signs/Intake and Output Vital Signs (last 24 hours): Temp Pulse Resp BP Pulse Ox 97.6 F 88 20 106/63 98 06/14/17 16:20 06/14/17 17:21 06/14/17 16:20 06/15/17 06:40 06/14/17 16:20 Intake and Output: 06/15/17 06/15/17 06:59 18:59 Intake Total 780 Output Total 3 Balance 777 - Medications Medications: Current Medications Atorvastatin Calcium (Lipitor) 10 mg PO DAILY [facility] Last Admin: 06/14/17 09:40 Dose: 10 mg Cholecalciferol (Vitamin D) 1,000 iu PO DAILY [facility] Last Admin: 06/14/17 09:41 Dose: 1,000 iu Clonazepam (Klonopin) 0.5 mg PO DAILY [facility] PRN Reason: Protocol Last Admin: 06/14/17 09:40 Dose: 0.5 mg Gabapentin (Neurontin) 400 mg PO TID [facility] PRN Reason: Protocol Last Admin: 06/14/17 17:20 Dose: 400 mg Sodium Chloride (Sodium Chloride 0.9%) 1,000 mls @ 100 mls/hr IV .Q10H [facility] Ketorolac Tromethamine (Toradol) 30 mg IVP Q6H PRN PRN Reason: Pain, severe (8-10) Last Admin: 06/14/17 22:04 Dose: 30 mg Lisinopril (Zestril) 5 mg PO DAILY [facility] Last Admin: 06/14/17 09:41 Dose: 5 mg Metoprolol Succinate (Toprol Xl) 25 mg PO BID [facility] Last Admin: 06/14/17 17:21 Dose: 25 mg Mirtazapine (Remeron) 15 mg PO HS [facility] Last Admin: 06/14/17 22:05 Dose: 15 mg Ondansetron HCl (Zofran Inj) 4 mg IVP Q6H PRN PRN Reason: Nausea/Vomiting Pantoprazole Sodium (Protonix Inj) 40 mg IVP DAILY [facility] Last Admin: 06/14/17 09:40 Dose: 40 mg Pneumococcal Polyvalent Vaccine (Pneumovax 23 Vaccine) 0.5 ml IM .ONCE ONE Stop: 06/16/17 10:01 Sertraline HCl (Zoloft) 75 mg PO DAILY [facility] Last Admin: 06/14/17 09:41 Dose: 75 mg - Labs Labs: 06/14/17 07:30 06/14/17 07:30 PT 11.3 Seconds (9.9-11.8) 06/13/17 17:56 INR 1.05 (0.93-1.08) 06/13/17 17:56 APTT 29.6 Seconds (23.7-30.8) 06/13/17 17:56 - Constitutional Appears: Well, No Acute Distress - Head Exam Head Exam: ATRAUMATIC, NORMOCEPHALIC - Eye Exam Eye Exam: Normal appearance - ENT Exam ENT Exam: Mucous Membranes Moist - Respiratory Exam Respiratory Exam: Clear to Ausculation Bilateral, NORMAL BREATHING PATTERN. absent: Rales, Rhonchi, Wheezes - Cardiovascular Exam Cardiovascular Exam: REGULAR RHYTHM, +S1, +S2 - GI/Abdominal Exam GI & Abdominal Exam: Soft, Tenderness (LLQ), Normal Bowel Sounds. absent: Firm , Guarding, Rigid, Diminished Bowel Sounds, Hyperactive Bowel Sounds - Neurological Exam Neurological Exam: Alert, Awake, Oriented x3 - Psychiatric Exam Psychiatric exam: Normal Affect, Normal Mood - Skin Skin Exam: Dry, Intact, Normal Color, Warm Assessment and Plan - Assessment and Plan (Free Text) Assessment: 46 year old female with history of Hypertension, Hyperlipidemia, Diverticulitis s/p left hemicolectomy/colostomy with reversal (10-12 years ago), and Ulcerative colitis (diagnosed 4 years ago) presenting with abdominal pain. Active treatment of enterocolitis on CT IV contrast. History of yearly EGD/ colonoscopy since Ulcerative colitis diagnosis with endorsed inactive disease. Last colonoscopy performed 2-3 months ago endorsed to be normal. Enterocolitis, DDx: infectious, inflammatory, ischemic, stercoral Stool Retention Abd pain History of diverticulitis s/p partial colon resection History of abdominal hernia repair IBD? Plan: -Continue to hold antibiotics -no indication for steroids -avoid NSAIDs -fecal calprotectin, stool studies, c.diff toxin pending -CT shows fecal retention -continue supportive care: IVFs, pain control, anti-emetics -advance to soft diet today -obtain records of prior diverticulitis s/p colostomy, UC management, and colonoscopy report -will require outpatient follow up with established statistical typist, Dr. Clark, located in [facility] D/W Dr. Conway <Fermin Conway - Last Filed: 06/15/17 09:37> Objective - Vital Signs/Intake and Output Vital Signs (last 24 hours): Temp Pulse Resp BP Pulse Ox 98.2 F 57 L 18 167/91 H 97 06/15/17 08:43 06/15/17 08:43 06/15/17 08:43 06/15/17 08:43 06/15/17 08:43 Intake and Output: 06/15/17 06/15/17 06:59 18:59 Intake Total 780 Output Total 3 Balance 777 - Medications Medications: Current Medications Atorvastatin Calcium (Lipitor) 10 mg PO DAILY [facility] Last Admin: 06/15/17 09:03 Dose: 10 mg Cholecalciferol (Vitamin D) 1,000 iu PO DAILY [facility] Last Admin: 06/15/17 09:03 Dose: 1,000 iu Clonazepam (Klonopin) 0.5 mg PO DAILY [facility] PRN Reason: Protocol Last Admin: 06/15/17 09:02 Dose: 0.5 mg Gabapentin (Neurontin) 400 mg PO TID [facility] PRN Reason: Protocol Last Admin: 06/15/17 09:02 Dose: 400 mg Sodium Chloride (Sodium Chloride 0.9%) 1,000 mls @ 100 mls/hr IV .Q10H [facility] Ketorolac Tromethamine (Toradol) 30 mg IVP Q6H PRN PRN Reason: Pain, severe (8-10) Last Admin: 06/15/17 09:03 Dose: 30 mg Lisinopril (Zestril) 5 mg PO DAILY [facility] Last Admin: 06/15/17 09:02 Dose: 5 mg Metoprolol Succinate (Toprol Xl) 25 mg PO BID [facility] Last Admin: 06/15/17 09:02 Dose: 25 mg Mirtazapine (Remeron) 15 mg PO HS [facility] Last Admin: 06/14/17 22:05 Dose: 15 mg Ondansetron HCl (Zofran Inj) 4 mg IVP Q6H PRN PRN Reason: Nausea/Vomiting Pantoprazole Sodium (Protonix Inj) 40 mg IVP DAILY [facility] Last Admin: 06/15/17 09:03 Dose: 40 mg Pneumococcal Polyvalent Vaccine (Pneumovax 23 Vaccine) 0.5 ml IM .ONCE ONE Stop: 06/16/17 10:01 Sertraline HCl (Zoloft) 75 mg PO DAILY [facility] Last Admin: 06/15/17 09:03 Dose: 75 mg - Labs Labs: 06/15/17 08:00 06/15/17 08:00 PT 11.3 Seconds (9.9-11.8) 06/13/17 17:56 INR 1.05 (0.93-1.08) 06/13/17 17:56 APTT 29.6 Seconds (23.7-30.8) 06/13/17 17:56 Attending/Attestation - Attestation I have personally seen and examined this patient.: Yes I have fully participated in the care of the patient.: Yes I have reviewed all pertinent clinical information, including history, physical exam and plan: Yes Notes (Text): 06/15/17 09:34 46 year old female with history of HTN, HLD, Diverticulitis s/p surgery (? lloyd), and left sided Ulcerative colitis (diagnosed 4 years ago) presenting with abdominal pain. 1. Ulcerative colitis Plan: -patient mainly complaining of left sided abdominal pain with reported h/o UC -she denies diarrhea/blood in stool -no signs of infection, normal WBC, no fever -would continue oral 5-asa medication that she takes at home -advised discharge and follow up with her GI -advance diet to regular -if she tolerates diet and pain is under control, she could be discharged
[2017-06-15 08:13] LABS: BASO # 0.01 K/mm3 (0.0-2.0); BASO % 0.1 % (0.0-3.0); EOS # 0.1 (0.0-0.7); EOS % 0.6 % (1.5-5.0); GRAN # 6.28 (1.4-6.5); GRAN % 64.6 % (50.0-68.0); HEMATOCRIT 39.9 % (36.0-48.0); LYMPH # 2.9 (1.2-3.4); LYMPH % 29.7 % (22.0-35.0); MEAN CELL VOLUME 87.5 fl (80.0-105.0); MEAN CORPUSCULAR HEMOGLOBIN 29.2 pg (25.0-35.0); MEAN CORPUSCULAR HGB CONC 33.3 g/dl (31.0-37.0); MEAN PLATELET VOLUME 9.6 fl (7.0-11.0); MONO # 0.5 (0.1-0.6); WHITE BLOOD COUNT 9.7 10^3/ul (4.5-11.0)
[2017-06-15 08:28] LABS: ALB/GLOB RATIO 1.3 (1.1-1.8); ALKALINE PHOSPHATASE 82 U/L (38-133); ALT/SGPT 37 U/L (7-56); AST/SGOT 32 U/L (15-39); BILIRUBIN,TOTAL 0.3 mg/dL (0.2-1.3); BLOOD UREA NITROGEN 8 mg/dL (7-21); CARBON DIOXIDE 28 mmol/L (21-33); CHLORIDE 108 mmol/L (98-107); GFR AFRICAN-AMERICAN > 60; GLUCOSE,RANDOM 79 mg/dL (70-110); POTASSIUM 3.5 mmol/L (3.6-5.0); SODIUM 143 mmol/L (132-148); TOTAL PROTEIN 6.4 g/dL (5.8-8.3)
[2017-06-15 08:44] VITALS: RESP 18
[2017-06-15] MEDS: Metoprolol Succinate 25 mg XL Tab PO SCH ×2 (09:02→17:04)
[2017-06-15] MEDS ORDERED: Potassium Chloride 40 mEq/30 ml LIQ UD PO ONE (09:14)
[2017-06-15] MEDS: Oxycodone/Acetaminophen 5/325 mg Tab PO PRN ×3 (11:09→23:05)
[2017-06-15] MEDS: Lactobacillus Acidophilus 500 MU Cap PO SCH (17:04)
--- NOTE | 2017-06-16 06:30 | CP.PCM.PN ---
Objective - Vital Signs/Intake and Output Vital Signs (last 24 hours): Temp Pulse Resp BP Pulse Ox 98.2 F 57 L 18 161/74 H 97 06/15/17 08:43 06/15/17 08:43 06/15/17 08:43 06/15/17 17:04 06/15/17 08:43 Intake and Output: 06/15/17 06/16/17 18:59 06:59 Intake Total 900 1560 Output Total 1 Balance 900 1559 - Medications Medications: Current Medications Atorvastatin Calcium (Lipitor) 10 mg PO DAILY [facility] Last Admin: 06/15/17 09:03 Dose: 10 mg Cholecalciferol (Vitamin D) 1,000 iu PO DAILY [facility] Last Admin: 06/15/17 09:03 Dose: 1,000 iu Clonazepam (Klonopin) 0.5 mg PO DAILY [facility] PRN Reason: Protocol Last Admin: 06/15/17 09:02 Dose: 0.5 mg Gabapentin (Neurontin) 400 mg PO TID [facility] PRN Reason: Protocol Last Admin: 06/15/17 17:04 Dose: 400 mg Heparin Sodium (Porcine) (Heparin) 5,000 units SC Q12 [facility] PRN Reason: Protocol Last Admin: 06/15/17 21:36 Dose: 5,000 units Lactobacillus Acidophilus (Bacid Acidophilus) 1 cap PO BID [facility] Last Admin: 06/15/17 17:04 Dose: 1 cap Lisinopril (Zestril) 5 mg PO DAILY [facility] Last Admin: 06/15/17 09:02 Dose: 5 mg Metoprolol Succinate (Toprol Xl) 25 mg PO BID [facility] Last Admin: 06/15/17 17:04 Dose: 25 mg Metronidazole (Flagyl) 500 mg PO Q8 [facility] PRN Reason: Protocol Last Admin: 06/15/17 21:36 Dose: 500 mg Mirtazapine (Remeron) 15 mg PO HS [facility] Last Admin: 06/15/17 21:36 Dose: 15 mg Ondansetron HCl (Zofran Inj) 4 mg IVP Q6H PRN PRN Reason: Nausea/Vomiting Oxycodone/Acetaminophen (Percocet 5/325 Mg Tab) 1 tab PO Q6H PRN PRN Reason: Pain, moderate (4-7) Stop: 06/18/17 10:49 Last Admin: 06/15/17 23:05 Dose: 1 tab Pantoprazole Sodium (Protonix Inj) 40 mg IVP DAILY [facility] Last Admin: 06/15/17 09:03 Dose: 40 mg Pneumococcal Polyvalent Vaccine (Pneumovax 23 Vaccine) 0.5 ml IM .ONCE ONE Stop: 06/16/17 10:01 Sertraline HCl (Zoloft) 75 mg PO DAILY [facility] Last Admin: 06/15/17 09:03 Dose: 75 mg - Labs Labs: 06/15/17 08:00 06/15/17 08:00 PT 11.3 Seconds (9.9-11.8) 06/13/17 17:56 INR 1.05 (0.93-1.08) 06/13/17 17:56 APTT 29.6 Seconds (23.7-30.8) 06/13/17 17:56
[2017-06-16 07:27] VITALS: BP 127/63; TEMP 97.7; O2SAT 95
[2017-06-16] MEDS: Oxycodone/Acetaminophen 5/325 mg Tab PO PRN (08:59)
[2017-06-16] MEDS: Lactobacillus Acidophilus 500 MU Cap PO SCH (09:00)
[2017-06-16] MEDS: Metoprolol Succinate 25 mg XL Tab PO SCH (09:01)
[2017-06-16 09:03] LABS: BASO # 0.02 K/mm3 (0.0-2.0); BASO % 0.2 % (0.0-3.0); EOS # 0.1 (0.0-0.7); EOS % 1.3 % (1.5-5.0); GRAN # 5.18 (1.4-6.5); GRAN % 58.1 % (50.0-68.0); HEMATOCRIT 39.8 % (36.0-48.0); LYMPH # 3.1 (1.2-3.4); MEAN CELL VOLUME 87.3 fl (80.0-105.0); MEAN CORPUSCULAR HEMOGLOBIN 28.5 pg (25.0-35.0); MEAN CORPUSCULAR HGB CONC 32.7 g/dl (31.0-37.0); MEAN PLATELET VOLUME 9.5 fl (7.0-11.0); MONO # 0.5 (0.1-0.6); MONO % 5.4 % (1.0-6.0); WHITE BLOOD COUNT 8.9 10^3/ul (4.5-11.0)
[2017-06-16 09:04] VITALS: PULSE 55
[2017-06-16 09:09] LABS: ALB/GLOB RATIO 1.4 (1.1-1.8); ALKALINE PHOSPHATASE 87 U/L (38-133); ALT/SGPT 49 U/L (7-56); AST/SGOT 28 U/L (15-39); BILIRUBIN,TOTAL 0.3 mg/dL (0.2-1.3); BLOOD UREA NITROGEN 13 mg/dL (7-21); CALCIUM 9.4 mg/dL (8.4-10.5); CARBON DIOXIDE 28 mmol/L (21-33); CHLORIDE 102 mmol/L (98-107); GFR AFRICAN-AMERICAN > 60; GLUCOSE,RANDOM 86 mg/dL (70-110); MAGNESIUM 1.9 mg/dL (1.7-2.2); SODIUM 142 mmol/L (132-148); TOTAL PROTEIN 7.3 g/dL (5.8-8.3)
--- NOTE | 2017-06-16 09:53 | CP.PCM.PN ---
<Sawyer Bell - Last Filed: 06/16/17 09:56> Subjective - Date & Time of Evaluation Date of Evaluation: 06/16/17 Time of Evaluation: 07:15 - Subjective Subjective: PGY4 GI Follow-up Pt seen and examined bedside Minimal abd pain in LLQ Denies any fever, chills, and diaphoresis States she has loose BM, but now more formed Denies any blood or mucus in stool tolerating reg diet without complications No other complaints Objective - Vital Signs/Intake and Output Vital Signs (last 24 hours): Temp Pulse Resp BP Pulse Ox 97.7 F 55 L 18 127/63 95 06/16/17 07:26 06/16/17 09:00 06/16/17 07:26 06/16/17 09:00 06/16/17 07:26 Intake and Output: 06/16/17 06/16/17 06:59 18:59 Intake Total 1560 Output Total 1 Balance 1559 - Medications Medications: Current Medications Atorvastatin Calcium (Lipitor) 10 mg PO DAILY [facility] Last Admin: 06/16/17 08:59 Dose: 10 mg Cholecalciferol (Vitamin D) 1,000 iu PO DAILY [facility] Last Admin: 06/16/17 09:00 Dose: 1,000 iu Clonazepam (Klonopin) 0.5 mg PO DAILY [facility] PRN Reason: Protocol Last Admin: 06/16/17 09:00 Dose: 0.5 mg Gabapentin (Neurontin) 400 mg PO TID [facility] PRN Reason: Protocol Last Admin: 06/16/17 09:00 Dose: 400 mg Heparin Sodium (Porcine) (Heparin) 5,000 units SC Q12 [facility] PRN Reason: Protocol Last Admin: 06/16/17 09:01 Dose: 5,000 units Lactobacillus Acidophilus (Bacid Acidophilus) 1 cap PO BID [facility] Last Admin: 06/16/17 09:00 Dose: 1 cap Lisinopril (Zestril) 5 mg PO DAILY [facility] Last Admin: 06/16/17 09:00 Dose: 5 mg Metoprolol Succinate (Toprol Xl) 25 mg PO BID [facility] Last Admin: 06/16/17 09:01 Dose: 25 mg Metronidazole (Flagyl) 500 mg PO Q8 [facility] PRN Reason: Protocol Last Admin: 06/16/17 06:54 Dose: 500 mg Mirtazapine (Remeron) 15 mg PO HS [facility] Last Admin: 06/15/17 21:36 Dose: 15 mg Ondansetron HCl (Zofran Inj) 4 mg IVP Q6H PRN PRN Reason: Nausea/Vomiting Oxycodone/Acetaminophen (Percocet 5/325 Mg Tab) 1 tab PO Q6H PRN PRN Reason: Pain, moderate (4-7) Stop: 06/18/17 10:49 Last Admin: 06/16/17 08:59 Dose: 1 tab Pantoprazole Sodium (Protonix Inj) 40 mg IVP DAILY [facility] Last Admin: 06/16/17 09:00 Dose: 40 mg Pneumococcal Polyvalent Vaccine (Pneumovax 23 Vaccine) 0.5 ml IM .ONCE ONE Stop: 06/16/17 10:01 Sertraline HCl (Zoloft) 75 mg PO DAILY [facility] Last Admin: 06/16/17 08:59 Dose: 75 mg - Labs Labs: 06/16/17 08:54 06/16/17 08:54 PT 11.3 Seconds (9.9-11.8) 06/13/17 17:56 INR 1.05 (0.93-1.08) 06/13/17 17:56 APTT 29.6 Seconds (23.7-30.8) 06/13/17 17:56 Assessment and Plan - Assessment and Plan (Free Text) Assessment: 46 year old female with history of Hypertension, Hyperlipidemia, Diverticulitis s/p left hemicolectomy/colostomy with reversal (10-12 years ago), and Ulcerative colitis (diagnosed 4 years ago) presenting with abdominal pain. Active treatment of enterocolitis on CT IV contrast. History of yearly EGD/ colonoscopy since Ulcerative colitis diagnosis with endorsed inactive disease. Last colonoscopy performed 2-3 months ago endorsed to be normal. C.diff antigen +, toxin PCR neg; active infection vs colonization UC Stool Retention Abd pain History of diverticulitis s/p partial colon resection History of abdominal hernia repair Plan: -Continue flagyl as prescribed -interval improvement in symptoms, formed stool -can transition to PO flagyl and ok to d/c from GI standpoint -avoid NSAIDs -fecal calprotectin pending -will require outpatient follow up with established pelts skinner, Dr. Clark, located in [place] d/w Dr. Conway <Fermin Conway - Last Filed: 06/16/17 10:05> Objective - Vital Signs/Intake and Output Vital Signs (last 24 hours): Temp Pulse Resp BP Pulse Ox 97.7 F 55 L 18 127/63 95 06/16/17 07:26 06/16/17 09:00 06/16/17 07:26 06/16/17 09:00 06/16/17 07:26 Intake and Output: 06/16/17 06/16/17 06:59 18:59 Intake Total 1560 Output Total 1 Balance 1559 - Medications Medications: Current Medications Atorvastatin Calcium (Lipitor) 10 mg PO DAILY [facility] Last Admin: 06/16/17 08:59 Dose: 10 mg Cholecalciferol (Vitamin D) 1,000 iu PO DAILY [facility] Last Admin: 06/16/17 09:00 Dose: 1,000 iu Clonazepam (Klonopin) 0.5 mg PO DAILY [facility] PRN Reason: Protocol Last Admin: 06/16/17 09:00 Dose: 0.5 mg Gabapentin (Neurontin) 400 mg PO TID [facility] PRN Reason: Protocol Last Admin: 06/16/17 09:00 Dose: 400 mg Heparin Sodium (Porcine) (Heparin) 5,000 units SC Q12 [facility] PRN Reason: Protocol Last Admin: 06/16/17 09:01 Dose: 5,000 units Lactobacillus Acidophilus (Bacid Acidophilus) 1 cap PO BID [facility] Last Admin: 06/16/17 09:00 Dose: 1 cap Lisinopril (Zestril) 5 mg PO DAILY [facility] Last Admin: 06/16/17 09:00 Dose: 5 mg Metoprolol Succinate (Toprol Xl) 25 mg PO BID [facility] Last Admin: 06/16/17 09:01 Dose: 25 mg Metronidazole (Flagyl) 500 mg PO Q8 [facility] PRN Reason: Protocol Last Admin: 06/16/17 06:54 Dose: 500 mg Mirtazapine (Remeron) 15 mg PO HS [facility] Last Admin: 06/15/17 21:36 Dose: 15 mg Ondansetron HCl (Zofran Inj) 4 mg IVP Q6H PRN PRN Reason: Nausea/Vomiting Oxycodone/Acetaminophen (Percocet 5/325 Mg Tab) 1 tab PO Q6H PRN PRN Reason: Pain, moderate (4-7) Stop: 06/18/17 10:49 Last Admin: 06/16/17 08:59 Dose: 1 tab Pantoprazole Sodium (Protonix Inj) 40 mg IVP DAILY [facility] Last Admin: 06/16/17 09:00 Dose: 40 mg Sertraline HCl (Zoloft) 75 mg PO DAILY [facility] Last Admin: 06/16/17 08:59 Dose: 75 mg - Labs Labs: 06/16/17 08:54 06/16/17 08:54 PT 11.3 Seconds (9.9-11.8) 06/13/17 17:56 INR 1.05 (0.93-1.08) 06/13/17 17:56 APTT 29.6 Seconds (23.7-30.8) 06/13/17 17:56 Attending/Attestation - Attestation I have personally seen and examined this patient.: Yes I have fully participated in the care of the patient.: Yes I have reviewed all pertinent clinical information, including history, physical exam and plan: Yes Notes (Text): 06/16/17 10:04 46 year old female with history of HTN, HLD, Diverticulitis s/p surgery (? lloyd), and left sided Ulcerative colitis (diagnosed 4 years ago) presenting with abdominal pain. 1. Ulcerative colitis 2. Clostridium difficile associated diarrhea Plan: -patient mainly complaining of left sided abdominal pain with reported h/o UC -only antigen positive, not toxin -on flagyl -would continue oral 5-asa medication that she takes at home -advised discharge and follow up with her GI -advance diet to regular -ok to discharge -will sign off
[2017-06-16] MEDS ORDERED: Pneumococcal 23-Valent Vaccine IM ONE (10:00)
--- NOTE | 2017-06-16 10:28 | CP.PCM.DIS ---
<Vanita Lyons - Last Filed: 06/25/17 07:51> Provider - Provider Date of Admission: 06/13/17 20:31 Attending physician: Radha Brown MD Primary care physician: Selam Montenegro MD Consults: GI Dr. Shields/Man Time Spent in preparation of Discharge (in minutes): 45 Hospital Course - Lab Results Lab Results: Micro Results 06/14/17 18:24 Stool Ova and Parasite Concentrate Exam - Final 06/14/17 18:24 Stool C. difficile Antigen & Toxin A,B (M - Final 06/14/17 18:24 Stool Stool Culture - Preliminary [employer]ACT[employer] DEVELOPER, SUB SELENITE BROTH. Most Recent Lab Values WBC 8.9 10^3/ul (4.5-11.0) 06/16/17 08:54 RBC 4.56 10^6/uL (3.5-6.1) 06/16/17 08:54 Hgb 13.0 g/dL (12.0-16.0) 06/16/17 08:54 Hct 39.8 % (36.0-48.0) 06/16/17 08:54 MCV 87.3 fl (80.0-105.0) 06/16/17 08:54 MCH 28.5 pg (25.0-35.0) 06/16/17 08:54 MCHC 32.7 g/dl (31.0-37.0) 06/16/17 08:54 RDW 14.0 % (11.5-14.5) 06/16/17 08:54 Plt Count 255 10^3/uL (120.0-450.0) 06/16/17 08:54 MPV 9.5 fl (7.0-11.0) 06/16/17 08:54 Gran % 58.1 % (50.0-68.0) 06/16/17 08:54 Lymph % (Auto) 35.0 % (22.0-35.0) 06/16/17 08:54 [place] % (Auto) 5.4 % (1.0-6.0) 06/16/17 08:54 Eos % (Auto) 1.3 % (1.5-5.0) L 06/16/17 08:54 Baso % (Auto) 0.2 % (0.0-3.0) 06/16/17 08:54 Gran # 5.18 (1.4-6.5) 06/16/17 08:54 Lymph # 3.1 (1.2-3.4) 06/16/17 08:54 [place] # 0.5 (0.1-0.6) 06/16/17 08:54 Eos # 0.1 (0.0-0.7) 06/16/17 08:54 Baso # 0.02 K/mm3 (0.0-2.0) 06/16/17 08:54 ESR 22 mm/hr (0.0-20.0) H 06/14/17 07:30 PT 11.3 Seconds (9.9-11.8) 06/13/17 17:56 INR 1.05 (0.93-1.08) 06/13/17 17:56 APTT 29.6 Seconds (23.7-30.8) 06/13/17 17:56 Sodium 142 mmol/L (132-148) 06/16/17 08:54 Potassium 4.0 mmol/L (3.6-5.0) 06/16/17 08:54 Chloride 102 mmol/L (98-107) 06/16/17 08:54 Carbon Dioxide 28 mmol/L (21-33) 06/16/17 08:54 Anion Gap 16 (10-20) 06/16/17 08:54 BUN 13 mg/dL (7-21) 06/16/17 08:54 Creatinine 0.7 mg/dL (0.5-1.4) 06/16/17 08:54 Est GFR ( Amer) > 60 06/16/17 08:54 Est GFR (Non-Af Amer) > 60 06/16/17 08:54 Random Glucose 86 mg/dL (70-110) 06/16/17 08:54 Calcium 9.4 mg/dL (8.4-10.5) 06/16/17 08:54 Ionized Calcium 5.3 mg/dL (4.80-5.60) 06/14/17 07:30 Phosphorus 4.0 mg/dL (2.5-4.5) 06/16/17 08:54 Magnesium 1.9 mg/dL (1.7-2.2) 06/16/17 08:54 Total Bilirubin 0.3 mg/dL (0.2-1.3) 06/16/17 08:54 AST 28 U/L (15-39) 06/16/17 08:54 ALT 49 U/L (7-56) 06/16/17 08:54 Alkaline Phosphatase 87 U/L (38-133) 06/16/17 08:54 C-React Prot High Sens 10.35 mg/L (1.00-3.00) H 06/14/17 07:30 Total Protein 7.3 g/dL (5.8-8.3) 06/16/17 08:54 Albumin 4.2 g/dL (3.0-4.8) 06/16/17 08:54 Globulin 3.0 gm/dL 06/16/17 08:54 Albumin/Globulin Ratio 1.4 (1.1-1.8) 06/16/17 08:54 Lipase 93 U/L (23-300) 06/13/17 17:56 Urine Color Yellow (YELLOW) 06/13/17 17:15 Urine Appearance Clear (CLEAR) 06/13/17 17:15 Urine pH 6.0 (4.7-8.0) 06/13/17 17:15 Ur Specific [place] 1.020 (1.005-1.035) 06/13/17 17:15 Urine Protein Negative mg/dL (<30 mg/dL) 06/13/17 17:15 Urine Glucose (UA) Negative mg/dL (NEGATIVE) 06/13/17 17:15 Urine Ketones Negative mg/dL (NEGATIVE) 06/13/17 17:15 Urine Blood Moderate (NEGATIVE) H 06/13/17 17:15 Urine Nitrate Negative (NEGATIVE) 06/13/17 17:15 Urine Bilirubin Negative (NEGATIVE) 06/13/17 17:15 Urine Urobilinogen 0.2 E.U./dL (<1 E.U./dL) 06/13/17 17:15 Ur Leukocyte Esterase Trace [place]/uL (NEGATIVE) H 06/13/17 17:15 Urine RBC 2 - 5 /hpf (0-2) 06/13/17 17:15 Urine WBC 1 - 3 /hpf (0-6) 06/13/17 17:15 Ur Epithelial Cells 10 - 12 /hpf (0-5) 06/13/17 17:15 Urine Bacteria Few (NEG) 06/13/17 17:15 Urine HCG, Qual Negative (NEGATIVE) 06/13/17 17:56 Stool Leukocytes, Qual Negative (NEGATIVE) 06/14/17 18:24 - Hospital Course Hospital Course: Upon Admission 46yo female PMHx ulcerative colitis, diverticulosis, asthma and psychiatric history who presents to [facility] ED for abdominal pain x 4 days. Patient reports having left sided abdominal/flank pain described as dull/sharp without radiation. She denied any inciting factors such as illness, trauma or change in medication. Patient reported diarrhea, vomiting, nausea, subjective fevers, chills and poor oral intake. Patient also describes mild to moderate distension of her abdomen. She denies any hematemesis, hematochezia, dysuria, inability to pass gas. Patient reports she has had previous episodes such as this with most recent being 6 months ago. Patient reports colonoscopy done 3 months ago which was reported as negative. Patient sees Dr. Guillaume in [place] for management of her UC. Patient was admitted to med/surg. CT abdomen/pelvis showed enterocolitis, enlarged fatty liver, duodenal diverticuli, intermittent small bowel wall thickening, descending colon sigmoid and rectal wall thickening with scattered diverticulosis. GI was consulted. As per GI, patient had no extraintestinal manifestations or chronic IBD symptoms to diagnosis acute flare up and no indications of Abx of steroids at this time. Patient was recommeded to avoid NSAIDs. Patient was positive for C Diff antigen and was started on Flagyl. Patient's abdominal pain and presenting symptoms improved and she was deemed medically stable for discharge as per hospitalist team and GI. 1) Enterocolitis: patient recommended to follow up with GI outpatient Dr. Clark 2) Hx of HTN: chronic- continue home meds 3) Hx of HLD: chronic- continue home meds 4) Hx of low vitamin D: chronic- continue home meds 5) Hx of depression: chronic- continue home meds Upon Discharge Patient stable for discharge as per hospitalist Dr. Brown and Gastroenterology team. Patient to resume all home medications. Patient has additionally been prescribed following medication: -Flagyl 500mg po q8 for 7 days Disp#56 -Florastor 1 tab po bid for 7 days Disp#14 Patient to follow up within PMD within 7 days. Patient to additionally follow up with GI within 10 days. If symptoms persist or worsen patient to visit ER immediately. Instructions discussed in detail with patient who understands and agrees. Please note this is a discharge summary. For full hospital course please refer to medical records. Discharge Exam - Head Exam Head Exam: ATRAUMATIC, NORMAL INSPECTION, NORMOCEPHALIC - Eye Exam Eye Exam: EOMI, Normal appearance, PERRL. absent: Conjunctival injection, Scleral icterus - ENT Exam ENT Exam: Mucous Membranes Moist - Neck Exam Neck exam: Full Rom, Normal Inspection - Respiratory Exam Respiratory Exam: Clear to PA & Lateral, NORMAL BREATHING PATTERN. absent: Accessory Muscle Use, Rales, Rhonchi, Wheezes, Respiratory Distress - Cardiovascular Exam Cardiovascular Exam: REGULAR RHYTHM, RRR, +S1, +S2. absent: Systolic Murmur - GI/Abdominal Exam GI & Abdominal Exam: Normal Bowel Sounds, Soft. absent: Firm, Guarding, Rigid, Tenderness - Extremities Exam Extremities exam: normal capillary refill, normal inspection, pedal pulses present - Back Exam Back exam: NORMAL INSPECTION. absent: rash noted - Neurological Exam Neurological exam: Alert, CN II-XII Intact, Oriented x3 - Psychiatric Exam Psychiatric exam: Normal Affect, Normal Mood - Skin Skin Exam: Dry, Intact, Normal Color, Warm Discharge Plan - Discharge Medications Prescriptions: Cholecalciferol [Vitamin D 1000 IU] 1,000 iu PO DAILY #30 tab Clonazepam [Klonopin] 0.5 mg PO DAILY #30 Gabapentin [Neurontin] 400 mg PO TID #90 Lactobacillus Acidophilus [Bacid Acidophilus] 1 cap PO BID #14 cap Lisinopril [Zestril] 5 mg PO DAILY #30 Metoprolol Succinate [Toprol XL] 25 mg PO BID #60 metroNIDAZOLE [Flagyl] 500 mg PO Q8 #56 tab Mirtazapine [Remeron] 15 mg PO HS #30 Pantoprazole [Protonix EC Tab] 40 mg PO DAILY #30 Sertraline [Zoloft] 75 mg PO DAILY #30 Simvastatin [Zocor] 20 mg PO HS #30 - Follow Up Plan Condition: STABLE Disposition: HOME/ ROUTINE Instructions: Irritable Bowel Syndrome (DC), Ulcerative Colitis (DC), Clostridium Difficile Infection (DC), Acute Abdominal Pain (DC), Acute Abdominal Pain (GEN) Additional Instructions: Patient stable for discharge as per hospitalist Dr. Brown and Gastroenterology team. Patient to resume all home medications. Patient has additionally been prescribed following medication: -Flagyl 500mg po q8 for 7 days Disp#56 -Florastor 1 tab po bid for 7 days Disp#14 Patient to follow up within PMD within 7 days. Patient to additionally follow up with GI within 10 days. If symptoms persist or worsen patient to visit ER immediately. Instructions discussed in detail with patient who understands and agrees. Referrals: Selam Montenegro MD [Primary Care Provider] - <Radha Brown - Last Filed: 06/25/17 11:03> Provider - Provider Date of Admission: 06/13/17 20:31 Attending physician: Radha Brown MD Primary care physician: Selam Montenegro MD Hospital Course - Lab Results Lab Results: Micro Results 06/14/17 18:24 Stool Stool Culture - Final NO SALMONELLA, SHIGELLA OR CAMPYLOBACTER ISOLATED. 06/14/17 18:24 Stool Ova and Parasite Concentrate Exam - Final 06/14/17 18:24 Stool C. difficile Antigen & Toxin A,B (M - Final Most Recent Lab Values WBC 8.9 10^3/ul (4.5-11.0) 06/16/17 08:54 RBC 4.56 10^6/uL (3.5-6.1) 06/16/17 08:54 Hgb 13.0 g/dL (12.0-16.0) 06/16/17 08:54 Hct 39.8 % (36.0-48.0) 06/16/17 08:54 MCV 87.3 fl (80.0-105.0) 06/16/17 08:54 MCH 28.5 pg (25.0-35.0) 06/16/17 08:54 MCHC 32.7 g/dl (31.0-37.0) 06/16/17 08:54 RDW 14.0 % (11.5-14.5) 06/16/17 08:54 Plt Count 255 10^3/uL (120.0-450.0) 06/16/17 08:54 MPV 9.5 fl (7.0-11.0) 06/16/17 08:54 Gran % 58.1 % (50.0-68.0) 06/16/17 08:54 Lymph % (Auto) 35.0 % (22.0-35.0) 06/16/17 08:54 [place] % (Auto) 5.4 % (1.0-6.0) 06/16/17 08:54 Eos % (Auto) 1.3 % (1.5-5.0) L 06/16/17 08:54 Baso % (Auto) 0.2 % (0.0-3.0) 06/16/17 08:54 Gran # 5.18 (1.4-6.5) 06/16/17 08:54 Lymph # 3.1 (1.2-3.4) 06/16/17 08:54 [place] # 0.5 (0.1-0.6) 06/16/17 08:54 Eos # 0.1 (0.0-0.7) 06/16/17 08:54 Baso # 0.02 K/mm3 (0.0-2.0) 06/16/17 08:54 ESR 22 mm/hr (0.0-20.0) H 06/14/17 07:30 PT 11.3 Seconds (9.9-11.8) 06/13/17 17:56 INR 1.05 (0.93-1.08) 06/13/17 17:56 APTT 29.6 Seconds (23.7-30.8) 06/13/17 17:56 Sodium 142 mmol/L (132-148) 06/16/17 08:54 Potassium 4.0 mmol/L (3.6-5.0) 06/16/17 08:54 Chloride 102 mmol/L (98-107) 06/16/17 08:54 Carbon Dioxide 28 mmol/L (21-33) 06/16/17 08:54 Anion Gap 16 (10-20) 06/16/17 08:54 BUN 13 mg/dL (7-21) 06/16/17 08:54 Creatinine 0.7 mg/dL (0.5-1.4) 06/16/17 08:54 Est GFR ( Amer) > 60 06/16/17 08:54 Est GFR (Non-Af Amer) > 60 06/16/17 08:54 Random Glucose 86 mg/dL (70-110) 06/16/17 08:54 Calcium 9.4 mg/dL (8.4-10.5) 06/16/17 08:54 Ionized Calcium 5.3 mg/dL (4.80-5.60) 06/14/17 07:30 Phosphorus 4.0 mg/dL (2.5-4.5) 06/16/17 08:54 Magnesium 1.9 mg/dL (1.7-2.2) 06/16/17 08:54 Total Bilirubin 0.3 mg/dL (0.2-1.3) 06/16/17 08:54 AST 28 U/L (15-39) 06/16/17 08:54 ALT 49 U/L (7-56) 06/16/17 08:54 Alkaline Phosphatase 87 U/L (38-133) 06/16/17 08:54 C-React Prot High Sens 10.35 mg/L (1.00-3.00) H 06/14/17 07:30 Total Protein 7.3 g/dL (5.8-8.3) 06/16/17 08:54 Albumin 4.2 g/dL (3.0-4.8) 06/16/17 08:54 Globulin 3.0 gm/dL 06/16/17 08:54 Albumin/Globulin Ratio 1.4 (1.1-1.8) 06/16/17 08:54 Lipase 93 U/L (23-300) 06/13/17 17:56 Urine Color Yellow (YELLOW) 06/13/17 17:15 Urine Appearance Clear (CLEAR) 06/13/17 17:15 Urine pH 6.0 (4.7-8.0) 06/13/17 17:15 Ur Specific [place] 1.020 (1.005-1.035) 06/13/17 17:15 Urine Protein Negative mg/dL (<30 mg/dL) 06/13/17 17:15 Urine Glucose (UA) Negative mg/dL (NEGATIVE) 06/13/17 17:15 Urine Ketones Negative mg/dL (NEGATIVE) 06/13/17 17:15 Urine Blood Moderate (NEGATIVE) H 06/13/17 17:15 Urine Nitrate Negative (NEGATIVE) 06/13/17 17:15 Urine Bilirubin Negative (NEGATIVE) 06/13/17 17:15 Urine Urobilinogen 0.2 E.U./dL (<1 E.U./dL) 06/13/17 17:15 Ur Leukocyte Esterase Trace [place]/uL (NEGATIVE) H 06/13/17 17:15 Urine RBC 2 - 5 /hpf (0-2) 06/13/17 17:15 Urine WBC 1 - 3 /hpf (0-6) 06/13/17 17:15 Ur Epithelial Cells 10 - 12 /hpf (0-5) 06/13/17 17:15 Urine Bacteria Few (NEG) 06/13/17 17:15 Urine HCG, Qual Negative (NEGATIVE) 06/13/17 17:56 Stool Leukocytes, Qual Negative (NEGATIVE) 06/14/17 18:24 Stool Calprotectin <15.6 mcg/g (< OR = 162.9) 06/14/17 18:24 Giardia Antigen Not detected (Not Detected) 06/14/17 18:24 Attending/Attestation - Attestation I have personally seen and examined this patient.: Yes I have fully participated in the care of the patient.: Yes I have reviewed all pertinent clinical information, including history, physical exam and plan: Yes Notes (Text): 06/25/17 11:01 46 year old female with past medical history of hypertension, dyslipidemia, diverticulitis s/p surgery, ?ulcerative colitis and asthma who presented with complaint of abdominal pain. CT abd/pelvis reviewed as above showing enterocolitis. Stool was also positive for C diff antigen. Her symptoms improved with fluids, analgesics and flagyl. Diet was advanced which she tolerated. 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 Radha Brown MD Hospitalist.
== END 2017-06-16 13:43 | disposition home or self-care (01) | DRG 895 ==
LOC: ED 16:59 → ERH 20:31 → 3RNO 06-14 05:17
PROVIDERS: ADMIT Internal Medicine; ATTEND Internal Medicine
DX: A04.7 Enterocolitis due to Clostridium difficile (principal); K51.90 Ulcerative colitis, unspecified, without complications; K76.0 Fatty (change of) liver, not elsewhere classified; I10 Essential (primary) hypertension; E78.5 Hyperlipidemia, unspecified; J45.909 Unspecified asthma, uncomplicated; F32.9 Major depressive disorder, single episode, unspecified; K57.30 Diverticulosis of large intestine without perforation or abscess without bleeding; Z90.49 Acquired absence of other specified parts of digestive tract; Z80.0 Family history of malignant neoplasm of digestive organs; Z80.8 Family history of malignant neoplasm of other organs or systems